=== PATIENT | male | born 1965 | race Caucasian/White ===

== ENCOUNTER 2016-05-21 12:38 | Emergency (ER) | payer OTHER ==
[~2016-05-21] VITALS: Ht 172.7 cm; Wt 103.4 kg
[~2016-05-21 12:38] MED LIST: AMT50 PO; CIPR-255 PO; CYCL10TA6 PO; IBUP-1050 PO; METR-163 PO; ONDA4TAB10 SL; TPRSR/25 PO; ZNTT/150 PO
[2016-05-21 12:43] VITALS: TEMP 36.8; Ht 172.7 cm; Wt 103.4 kg
[2016-05-21] MEDS ORDERED: PROMETHAZINE HCL INJ 25 MG/ML 1 ML VIAL IM STA (13:09)
[2016-05-21] MEDS ORDERED: KETOROLAC TROMETHAMINE 60 MG/2 ML VIAL IM STA (13:09)
[2016-05-21] MEDS ORDERED: HYDROmorphone INJ 2 MG/ML SYR/VIAL IM ONE (13:15)
[2016-05-21 14:09] VITALS: BP 148/106; PULSE 94; O2SAT 95
--- NOTE | 2016-05-22 23:48 | EMERGENCY ROOM VISIT NOTE ---
ED Visit Note First contact with patient: 13:00 CHIEF COMPLAINT: Migraine headache. HISTORY OF PRESENT ILLNESS: Mr. Zamudio is a 51 year-old white male who ambulates into the ED accompanied by his mother complaining of a migraine headache. She reports a gradual onset of a severe migraine headache that started approximately 18 hours ago. The pain is constant and it is slowly increasing in severity. This is not the worst headache of the life and is similar to previous migraines. Currently he describes the headache as a achy sensation/pain in the occipital area. She rates the pain a 10/10. The pain is radiating superiorly over the top of the head and then behind the eyes. He has not taken any medications for pain prior to arrival at the hospital. He has not identified any aggravating or alleviating factors related to the pain. There is been associated light sensitivity, nausea and vomiting. He denies fever, chills, sweats, skin eruptions, skin color changes, dizziness, lightheadedness, visual changes, hearing changes, difficulty speaking, difficulty swallowing, difficulty ambulates/coordinating body movements, recent upper respiratory tract symptoms, sore throat, sinus congestion, neck pain/stiffness, chest pain, shortness of breath, abdominal pain, extremity weakness/numbness/tingling. REVIEW OF SYSTEMS: As noted above in History of Present Illness; all body systems were reviewed and found to be negative unless noted above otherwise. PAST MEDICAL HISTORY: Diverticulitis, status post appendectomy, cervical spine fusion and unspecified throat and shoulder surgeries. CURRENT MEDICATIONS: Medications Dose Route/Sig Max Daily Dose Days Date Category Zofran Odt (Ondansetron HCl) 4 Mg Tab 4 Mg SL Q4 PRN 05/10/16 Rx Flagyl (Metronidazole) 500 Mg Tab 500 Mg PO BID 05/10/16 Rx Cipro (Ciprofloxacin Hcl) 500 Mg Tab 500 Mg PO BID 05/10/16 Rx Elavil (Amitriptyline HCl) 50 Mg Tab 50 Mg PO HS 04/10/16 Reported Flexeril (Cyclobenzaprine Hcl) 10 Mg Tab 10 Mg PO HS 04/10/16 Reported Advil (Ibuprofen) 200 Mg Tab 200-600 Mg PO Q4H PRN 03/23/16 Reported Metoprolol Succinate ER (Metoprolol Succinate) 25 Mg Tabcr 25 Mg PO DAILY 01/02/16 Reported Zantac (Ranitidine HCl) 150 Mg Tab 150 Mg PO DAILY PRN 10/01/15 Reported ALLERGIES TO MEDICATIONS: Citalopram, clonidine, Benadryl, Imitrex and zolmitriptan. SOCIAL HISTORY: Patient is currently employed; he lives with his mother and feels safe in his home environment; he denies tobacco and alcohol use. PHYSICAL EXAM: Vital Signs: Date Time Temp Pulse Resp B/P Pulse Ox O2 Delivery O2 Flow Rate FiO2 05/21/16 14:09 94 18 148/106 95 05/21/16 12:43 36.8 94 18 169/99 95 Room Air GENERAL: 51 year-old white male in moderate distress due to pain, afebrile and hemodynamically stable. Found sitting upright in a lighted room with sunglasses on. NEUROLOGIC: Awake, alert and oriented to person place and time. Answering questions appropriately and following commands. Cranial nerves II-XII grossly intact. No focal neurologic deficits noted. Good short-term and long-term recall. SKIN: Warm, dry and pink. No rashes, lesions or soft tissue trauma noted. HEENT: Normocephalic, atraumatic. Pupils equal, round and reactive. Extraocular movements intact and there is no nystagmus. Sclera anicteric. Ears , nose and oropharynx clear. Funduscopic examination deferred. NECK: Soft and supple. No tenderness through the central cervical region or cervical musculature. Negative Kernigs and negative Brudzinski signs. No lymphadenopathy, jugular venous distention, or bruits noted. THORAX: Lungs clear to auscultation and equal bilaterally with no wheezing, crackles, rhonchi or stridor and equal chest wall movements. HEART: Regular rate and rhythm with no murmurs, rubs or gallops. ABDOMEN: Soft and nontender with bowel sounds present in all quadrants; no rigidity, rebound tenderness, organomegaly or guarding. MUSCULOSKELETAL: Full range of motion of all joints without any significant discomfort and the gait is normal. ED COURSE: Patient is assessed with history and physical examination. Patient was given 2 mg of the Dilaudid IM, 60 mg of Toradol IM and 25 mg of Phenergan IM for the pain and nausea. Patient was reassessed. Patient was educated about his condition and instructed on her treatment plan; his verbalized understanding and agreement with this plan. CLINICAL IMPRESSION: Migraine headache. DECISION MAKIN-year-old male who presents for evaluation of headache. He is afebrile, well appearing, and hemodynamically stable. He has no signs of a sinus, dental, or ear infection and no evidence of meningismus. He is neurologically intact. I do not suspect a headache to be secondary to a subarachnoid hemorrhage, meningitis, encephalitis, or intracranial mass lesion. DISPOSITION: Patient was discharged to home in stable condition accompanied by his mother; prior to departure he was reassessed and subjectively reported he was feeling much better and rated his discomfort 4/10. DISCHARGE INSTRUCTIONS: Rest at home, in a quiet darkened room and allow the medication to work for the pain. Continue to follow up current treatment plan prescribed by your physician for your migraine headaches. See your own doctor in follow-up this week for continued care and treatment. Return to the ED as needed for worsening/uncontrolled pain, any abnormal neurological symptoms, fevers or in accordance with your pain management plan.
== END 2016-05-21 14:12 | disposition home or self-care (01) ==
LOC: C.EDB 12:40 → C.EDC 14:12
DX: G43.909 Migraine, unspecified, not intractable, without status migrainosus (principal)

== ENCOUNTER 2016-05-26 13:32 | Emergency (ER) | payer OTHER ==
[~2016-05-26] VITALS: Ht 172.7 cm; Wt 102.6 kg
[2016-05-26 13:36] VITALS: TEMP 36.7; Ht 172.7 cm; Wt 102.6 kg
--- NOTE | 2016-05-26 14:09 | EMERGENCY ROOM VISIT NOTE ---
History Report prepared by Santos: Eric Caballero Under the Supervision of: Dr. Bushra Bryant M.D. First contact with patient: 13:53 Chief Complaint: ABDOMINAL PAIN Stated Complaint: ABD PAIN - AROUND BELLY BUTTON Nursing Triage Summary: Abdominal pain in the umbilical region with nausea. History of Present Illness The patient is a 51 year old male who presents to the Emergency Room with complaints of persistent abdominal pain that started prior to arrival today. The patient was at work today and was bending over, and he then started having the pain. He states that the pain is around his belly button. The patient notes that the pain goes away when lying down, and the pain is much worse when standing up. He lifts heavy objects at his job, but he says that this pain has nothing to do with the lifting. Source of History: patient Onset: Prior to arrival today Position: abdomen Timing: other (persistent) Modifying Factors (Worsening): other (standing up) Modifying Factors (Relieving): other (lying down) Note: No other stated associated symptoms. Review of Systems See HPI for pertinent positives & negatives. A total of 6 systems reviewed and were otherwise negative. Past Medical & Surgical Medical Problems: (1) Diverticulitis (2) Diverticulitis (3) Diverticulosis (4) Headache (5) Hypertension (6) Migraine (7) Migraines (8) Pulmonary atelectasis (9) Vomiting Surgical Problems: (1) Appendectomy (2) Cervical fusion (3) Hx of resection of large bowel Family History FH: cancer FH: diabetes mellitus GRANDMOTHER FH: heart disease FATHER GRANDFATHER FH: stroke GRANDMOTHER Social History Smoking Status: Never Smoker Alcohol Use: none Drug Use: none Marital Status: single Housing Status: lives with family Occupation Status: employed Current/Historical Medications Scheduled Amitriptyline Hcl (Elavil), 50 MG PO HS Cyclobenzaprine Hcl (Flexeril), 10 MG PO HS Allergies Coded Allergies: Citalopram (Unverified Allergy, Unknown, unk, 05/26/16) Diphenhydramine (Verified Allergy, Unknown, crawls out of his skin, ) Sumatriptan (Verified Adverse Reaction, Intermediate, THROAT SWELLING, 05/26) Clonidine (Verified Adverse Reaction, Unknown, vomiting, headache, 05/26/16) Headache, chills, vomiting, PT DOES NOT RMEMEBER THIS ALLERGY Zolmitriptan (Verified Adverse Reaction, Unknown, LETHARGY, 05/26/16) Physical Exam Vital Signs Date Time Temp Pulse Resp B/P Pulse Ox O2 Delivery O2 Flow Rate FiO2 05/26/16 14:30 99 16 155/96 99 05/26/16 13:36 36.7 109 18 162/102 92 Room Air Physical Exam CONSTITUTIONAL: Mild distress. HEENT: No icterus, moist mucous membranes NECK: No meningismus, trachea is midline. CARDIOVASCULAR: Regular rate, normal perfusion RESPIRATORY: Unlabored breathing. Clear to auscultation. GASTROINTESTINAL: Reducible hernia. GENITOURINARY: No flank tenderness MUSCULOSKELETAL: Full range of motion NEUROLOGIC: No acute gross focal deficits. PSYCHIATRIC: Normal affect SKIN: Normal for ethnicity. Medical Decision & Procedures ED Course 1400: Past medical records reviewed. The patient was evaluated in room A11B. A complete history and physical examination was performed. The patient verbally expressed understanding and agreement of the treatment plan. The patient will be discharged. Medical Decision 51-year-old presents into the emergency room for painful palpable lump of umbilicus which occurred while he was work. He is noted to be under ED treatment plans for chronic recurrent headaches and occasional abdominal pain. He has an umbilical hernia which is clearly reproducible. Case management facilitate a follow-up with surgery on Sunday. If she has take Tylenol Motrin every 6 hours and return the emergency room should he not be able to reduce the hernia or for continues her despite [id number] analgesics. 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 Impression Primary Impression: Umbilical hernia Scribe Attestation The scribe's documentation has been prepared under my direction and personally reviewed by me in its entirety. I confirm that the note above accurately reflects all work, treatment, procedures, and medical decision making performed by me. Departure Information Dispostion Home / Self-Care Referrals Marlon Godfrey D.O. (PCP) Forms Call Back Authorization, HOME CARE DOCUMENTATION FORM, IMPORTANT VISIT INFORMATION, My [facility], Work Instructions Patient Instructions A Signature Page, Hernia Additional Instructions Take Tylenol 650 and Motrin 600mg every 6 hours. Follow-up with general surgery for umbilical hernia. Avoid heavy lifting at work. Return to ER for worsening or worrisome symptoms.
[2016-05-26 14:30] VITALS: BP 155/96; PULSE 99; O2SAT 99
== END 2016-05-26 14:30 | disposition home or self-care (01) ==
LOC: C.EDB 13:34 → C.EDA 14:30
DX: K42.9 Umbilical hernia without obstruction or gangrene (principal); I10 Essential (primary) hypertension; Z98.1 Arthrodesis status; Z83.3 Family history of diabetes mellitus; Z82.49 Family history of ischemic heart disease and other diseases of the circulatory system; Z82.3 Family history of stroke

== ENCOUNTER 2016-05-27 19:06 | Emergency (ER) | payer OTHER ==
[~2016-05-27] VITALS: Ht 172.7 cm; Wt 103.8 kg
[2016-05-27 19:11] VITALS: Ht 172.7 cm; Wt 103.8 kg
[2016-05-27] MEDS ORDERED: HYDROmorphone INJ 2 MG/ML SYR/VIAL IM STA (19:27)
[2016-05-27] MEDS ORDERED: PROMETHAZINE HCL INJ 25 MG/ML 1 ML VIAL IM STA (19:27)
[2016-05-27] MEDS ORDERED: KETOROLAC TROMETHAMINE 60 MG/2 ML VIAL IM STA (19:27)
--- NOTE | 2016-05-27 20:03 | EMERGENCY ROOM VISIT NOTE ---
ED Visit Note First contact with patient: 19:14 CHIEF COMPLAINT: Migraine headache HISTORY OF PRESENT ILLNESS: This 51-year-old male patient presented to the emergency department ambulatory with a gradual onset of a severe generalized headache that started this morning. The patient states the migraine is similar to their typical migraines. There has been associated photophobia, phonophobia, and nausea without vomiting. The patient denies fever or chills recently, and there is no weakness or numbness of the extremities. There is no difficulty with speech or vision. No trauma to the head and no neck pain. The pain is severe, constant, and it is slowly increasing in severity. The patient rates the pain as throbbing and and 9/10. The patient has taken Medications today for his symptoms. This is not the worst headache of the life and is similar to previous migraines. Previous imaging studies of the brain have been normal. REVIEW OF SYSTEMS: A review of systems was performed with positives and pertinent negatives listed in the history of present illness. All other systems were reviewed and are negative. ALLERGIES: Citalopram, clonidine, diphenhydramine, sumatriptan, zolmitriptan MEDICATIONS: Amitriptyline, Flexeril PMH: Migraine headaches SOCIAL HISTORY: Patient lives locally with family. Nonsmoker. PHYSICAL EXAM: Vital Signs: Reviewed Nurse's notes, vital signs stable. GENERAL : This is a 51-year-old male, who appears in pain, but non toxic in appearance and in no acute distress. MENTAL STATUS: Alert, oriented, and coherent. HEENT: Normocephalic. PERRLA. EOMI. Nares patent without nuchal rigidity. Tympanic membranes pearly tran without erythema or effusion bilaterally. Mucous membranes moist. NECK: Supple, no nuchal rigidity, nontender, no lymphadenopathy. HEART: Regular rhythm and normal rate without murmurs, ectopy, gallops, or rubs. LUNGS: Clear to auscultation bilaterally without wheezes, rales or rhonchi. No dullness to percussion. No accessory muscle use. No retractions. SKIN: Normal. NEUROLOGICAL: Pupils are round, equal and react to light. The optic fundi are normal and the discs are flat. The patient moves all extremities well and the gait is normal. EMERGENCY DEPARTMENT COURSE: I examined the patient. The patient is on a 2 narcotic injection per month treatment plan for their migraines. The patient was given 2 mg Dilaudid IM, 60 mg Toradol IM and 25 mg Phenergan IM per their usual protocol. The differential diagnosis includes acute intracranial bleed, meningitis, encephalitis, mass or mass effect, sinusitis, infection, tumor, headache, temporal arteritis and carbon monoxide exposure, and migraine. The patient was discharged home in stable condition with a family member driving. DIAGNOSIS: Migraine headache Problem List Medical Problems: (1) Diverticulitis Status: Resolved (2) Diverticulitis Status: Resolved (3) Diverticulosis Status: Chronic (4) Headache Status: Resolved (5) Hypertension Status: Chronic (6) Migraine Status: Resolved (7) Migraines Status: Chronic (8) Pulmonary atelectasis Status: Resolved (9) Vomiting Status: Resolved Surgical Problems: (1) Appendectomy Status: Resolved (2) Cervical fusion Status: Resolved (3) Hx of resection of large bowel Status: Resolved Current/Historical Medications Scheduled Amitriptyline Hcl (Elavil), 50 MG PO HS Cyclobenzaprine Hcl (Flexeril), 10 MG PO HS Metoprolol Succinate (Metoprolol Succinate ER), 25 MG PO DAILY Allergies Coded Allergies: Citalopram (Unverified Allergy, Unknown, unk, 05/27/16) Diphenhydramine (Verified Allergy, Unknown, crawls out of his skin, 05/27/16 ) Sumatriptan (Verified Adverse Reaction, Intermediate, THROAT SWELLING, 05/27) Clonidine (Verified Adverse Reaction, Unknown, vomiting, headache, 05/27/16) Headache, chills, vomiting, PT DOES NOT RMEMEBER THIS ALLERGY Zolmitriptan (Verified Adverse Reaction, Unknown, LETHARGY, 05/27/16) Vital Signs Date Time Temp Pulse Resp B/P Pulse Ox O2 Delivery O2 Flow Rate FiO2 05/27/16 20:33 36.8 101 18 163/97 94 05/27/16 19:11 36.8 101 18 163/97 94 Room Air Medications Administered Medications (Trade) Dose Ordered Sig/Gladis Route Start Time Stop Time Status Last Admin Dose Admin Hydromorphone HCl (Dilaudid Inj) 2 mg NOW STAT IM 05/27/16 19:27 05/27/16 19:29 DC 05/27/16 20:13 2 MG Promethazine HCl (Phenergan Inj) 25 mg NOW STAT IM 05/27/16 19:27 05/27/16 19:29 DC 05/27/16 20:12 25 MG Ketorolac Tromethamine (Toradol Inj) 60 mg NOW STAT IM 05/27/16 19:27 05/27/16 19:29 DC 05/27/16 20:12 60 MG Departure Information Impression Primary Impression: Migraine Dispostion Home / Self-Care Condition GOOD Referrals Marlon Godfrey, D.O. (PCP) Patient Instructions A Signature Page, My [facility] Additional Instructions You have been treated in the Emergency Department for a Headache. You have received pain medicine in the emergency department which impairs your ability to operate a vehicle. It is illegal for you to drive after receiving these medicines. Follow-up with your primary care provider Holger frances as scheduled. Return to the Emergency Department if your current symptoms worsen despite treatment course outlined above, or if you develop any of the following symptoms : intractable pain despite aforementioned treatment course, visual disturbances , loss of vision, unilateral weakness or facial drooping, slurring of speech, loss of coordination, or loss of consciousness.
[2016-05-27 20:33] VITALS: BP 163/97; PULSE 101; TEMP 36.8; O2SAT 94
== END 2016-05-27 20:34 | disposition home or self-care (01) ==
LOC: C.EDB 19:07 → C.EDD 20:34
DX: G43.909 Migraine, unspecified, not intractable, without status migrainosus (principal); I10 Essential (primary) hypertension; Z79.1 Long term (current) use of non-steroidal anti-inflammatories (NSAID); Z79.899 Other long term (current) drug therapy

== ENCOUNTER 2016-06-21 15:22 | Emergency (ER) | payer OTHER ==
[~2016-06-21] VITALS: Ht 172.7 cm; Wt 102.0 kg
[~2016-06-21 15:22] MED LIST changes: -CIPR-255 PO; -IBUP-1050 PO; -METR-163 PO; -ONDA4TAB10 SL; -TPRSR/25 PO; -ZNTT/150 PO
[2016-06-21 15:36] VITALS: TEMP 36.9; Ht 172.7 cm; Wt 102.0 kg
[2016-06-21] MEDS ORDERED: KETOROLAC TROMETHAMINE 60 MG/2 ML VIAL IM STA (15:41)
[2016-06-21] MEDS ORDERED: PROMETHAZINE HCL INJ 25 MG/ML 1 ML VIAL IM STA (15:41)
[2016-06-21] MEDS ORDERED: HYDROmorphone INJ 2 MG/ML SYR/VIAL IM STA (15:41)
--- NOTE | 2016-06-21 15:46 | EMERGENCY ROOM VISIT NOTE ---
History First contact with patient: 15:37 Chief Complaint: HEADACHE Stated Complaint: MIGRAINE History of Present Illness The patient is a 51 year old male who presents to the Emergency Room with complaints of his typical migraine headache that started this morning. He reports nausea without vomiting. He has had no recent head injury, fevers or chills. He does have a recent history of umbilical herniorrhaphy. He denies any abdominal pain or drainage from the umbilicus. He reports that this migraine is similar to all prior migraines, and also worse headache of his life. He rates his discomfort a 9 out of 10. Review of Systems 10 system review was performed and was negative except for pertinent positives and negatives as indicated in history of present illness Past Medical/Surgical History Medical Problems: (1) Diverticulitis (2) Diverticulitis (3) Diverticulosis (4) Headache (5) Hypertension (6) Migraine (7) Migraines (8) Pulmonary atelectasis (9) Vomiting Surgical Problems: (1) Appendectomy (2) Cervical fusion (3) Hx of resection of large bowel Family History FH: cancer FH: diabetes mellitus GRANDMOTHER FH: heart disease FATHER GRANDFATHER FH: stroke GRANDMOTHER Social History Smoking Status: Never Smoker Alcohol Use: none Drug Use: none Marital Status: single Housing Status: lives with family Occupation Status: employed Current/Historical Medications Scheduled Amitriptyline Hcl (Elavil), 50 MG PO HS Cyclobenzaprine Hcl (Flexeril), 10 MG PO HS Metoprolol Succinate (Metoprolol Succinate ER), 25 MG PO DAILY Allergies Coded Allergies: Citalopram (Unverified Allergy, Unknown, unk, 05/27/16) Diphenhydramine (Verified Allergy, Unknown, crawls out of his skin, 05/27/16 ) Sumatriptan (Verified Adverse Reaction, Intermediate, THROAT SWELLING, 05/27) Clonidine (Verified Adverse Reaction, Unknown, vomiting, headache, 05/27/16) Headache, chills, vomiting, PT DOES NOT RMEMEBER THIS ALLERGY Zolmitriptan (Verified Adverse Reaction, Unknown, LETHARGY, 05/27/16) Physical Exam Vital Signs Date Time Temp Pulse Resp B/P Pulse Ox O2 Delivery O2 Flow Rate FiO2 06/21/16 15:36 36.9 107 21 168/112 95 Room Air Physical Exam CONSTITUTIONAL: Healthy and well nourished. Alert and oriented X 3 with positive affect. HEENT: Normocephalic, atraumatic. Pupils equal, round and reactive. Patient is photophobic, precluding funduscopic exam. NECK: Full active range of motion without discomfort. RESPIRATORY: Clear to auscultation bilaterally with no wheezing, crackles, rhonchi or stridor. CARDIOVASCULAR: Regular rate and rhythm with no murmurs, rubs or gallops. INTEGUMENTARY: No rash or other significant dermatologic conditions noted. NEUROLOGIC: Cranial nerves II-XII grossly intact. No focal neurologic deficits noted. Normal finger to nose test. Negative pronator drift. No ataxia with ambulation. Medical Decision & Procedures ED Course Patient history and physical exam were performed. Nurse's notes were reviewed. Vital signs were reviewed. Patient's blood pressure is elevated at 168/112. The patient reports that he did not take his Toprol this morning because of the nausea. Review medical records also shows that the patient is currently on a treatment plan. This is his first visit of the month, and received Dilaudid 2 mg, Toradol 60 mg and Phenergan 25 mg IM. The patient requested immediate discharge home. The patient was instructed to rest and remain well-hydrated. Follow-up with his family doctor or neurologist as needed for recurrent migraine headache. Return to the emergency department for any developing fever , persistent vomiting or other concerning neurologic symptoms. The patient was happy with plan of care, and rated his discomfort a 6 out of 10 at the time of discharge. Medical Decision Patient presents to the emergency department with complaint of a migraine. The patient has a history of chronic migraines, and reports that this pain is similar to all prior migrainous events. It is not the worse headache of his life. At this point, I do not feel that further imaging or laboratory studies are warranted. I do not suspect intracranial bleed, meningitis, abscess, TIA/ CVA, thromboembolic event or carbon monoxide poisoning. Impression Primary Impression: Migraine Departure Information Referrals Marlon Godfrey D.O. (PCP) Patient Instructions My [facility] Problem Qualifiers Primary Impression: Migraine Migraine type: unspecified Status migrainosus presence: without status migrainosus Intractability: not intractable Qualified Codes: G43.909 - Migraine, unspecified, not intractable, without status migrainosus
[2016-06-21 16:13] VITALS: BP 175/115; PULSE 103; O2SAT 94
== END 2016-06-21 16:14 | disposition home or self-care (01) ==
LOC: C.EDB 15:23 → C.EDD 16:14
DX: G43.909 Migraine, unspecified, not intractable, without status migrainosus (principal); I10 Essential (primary) hypertension

== ENCOUNTER 2016-06-23 17:44 | Emergency (ER) | payer OTHER ==
[~2016-06-23] VITALS: Ht 172.7 cm; Wt 103.5 kg
[2016-06-23 17:49] VITALS: BP 195/115; PULSE 97; TEMP 36.8; O2SAT 96; Ht 172.7 cm; Wt 103.5 kg
[2016-06-23] MEDS ORDERED: KETOROLAC TROMETHAMINE 60 MG/2 ML VIAL IM STA (18:30)
[2016-06-23] MEDS ORDERED: PROMETHAZINE HCL INJ 25 MG/ML 1 ML VIAL IM STA (18:30)
[2016-06-23] MEDS ORDERED: HYDROmorphone INJ 2 MG/ML SYR/VIAL IM STA (18:30)
[2016-06-23] MEDS ORDERED: TPRSR/25 PO (19:34)
--- NOTE | 2016-06-24 02:25 | EMERGENCY ROOM VISIT NOTE ---
ED Visit Note First contact with patient: 17:55 CHIEF COMPLAINT: Migraine headache. HISTORY OF PRESENT ILLNESS: Mr. Zamudio is a 51 year-old white male who ambulates into the ED accompanied by his complaining of a migraine headache. He reports a gradual onset of a severe migraine headache that started approximately 48 hours ago. The pain is constant and it is slowly increasing in severity. This is not the worst headache of the life and is similar to previous migraines. Currently he describes the headache as a achy/throbbing sensation/pain in the occipital area. He rates the pain a 9/10. The pain is radiating superiorly over the top of the head and then behind the eyes. He has not taken any medications for pain prior to arrival at the hospital. He has not identified any aggravating or alleviating factors related to the pain. There is been associated light sensitivity, nausea but no vomiting. He denies fever, chills, sweats, skin eruptions, skin color changes, dizziness, lightheadedness, visual changes, hearing changes, difficulty speaking, difficulty swallowing, difficulty ambulates/coordinating body movements, recent upper respiratory tract symptoms, sore throat, sinus congestion, neck pain/stiffness, chest pain, shortness of breath, abdominal pain, extremity weakness/numbness/tingling. REVIEW OF SYSTEMS: As noted above in History of Present Illness; all body systems were reviewed and found to be negative unless noted above otherwise. PAST MEDICAL HISTORY: Diverticulitis, status post umbilical hernia repair, appendectomy, cervical spine fusion and unspecified throat and shoulder surgeries. CURRENT MEDICATIONS: Medications Dose Route/Sig Max Daily Dose Days Date Category Metoprolol Succinate ER (Metoprolol Succinate) 25 Mg Tabcr 25 Mg PO DAILY 05/27/16 Reported ALLERGIES TO MEDICATIONS: Citalopram, clonidine, Benadryl, Imitrex and zolmitriptan. SOCIAL HISTORY: Patient is currently employed; he lives with his mother and feels safe in his home environment; he denies tobacco and alcohol use. PHYSICAL EXAM: Vital Signs: Date Time Temp Pulse Resp B/P Pulse Ox O2 Delivery O2 Flow Rate FiO2 06/23/16 17:49 36.8 97 20 195/115 96 Room Air GENERAL: 51 year-old white male in moderate distress due to pain, afebrile and hemodynamically stable. Found sitting upright in a darkened room with baseball down over his face. NEUROLOGIC: Awake, alert and oriented to person place and time. Answering questions appropriately and following commands. Cranial nerves II-XII grossly intact. No focal neurologic deficits noted. Good short-term and long-term recall. SKIN: Warm, dry and pink. No rashes, lesions or soft tissue trauma noted. HEENT: Normocephalic, atraumatic. Pupils equal, round and reactive. Extraocular movements intact and there is no nystagmus. Sclera anicteric. Ears , nose and oropharynx clear. Funduscopic examination deferred. NECK: Soft and supple. No tenderness through the central cervical region or cervical musculature. Negative Kernigs and negative Brudzinski signs. No lymphadenopathy, jugular venous distention, or bruits noted. THORAX: Lungs clear to auscultation and equal bilaterally with no wheezing, crackles, rhonchi or stridor and equal chest wall movements. HEART: Regular rate and rhythm with no murmurs, rubs or gallops. ABDOMEN: Soft and nontender with bowel sounds present in all quadrants; no rigidity, rebound tenderness, organomegaly or guarding. MUSCULOSKELETAL: Full range of motion of all joints without any significant discomfort and the gait is normal. ED COURSE: Patient is assessed with history and physical examination. Patient was given 2 mg of the Dilaudid IM, 60 mg of Toradol IM and 25 mg of Phenergan IM for the pain and nausea. Patient was reassessed. Patient was educated about his condition and instructed on her treatment plan; his verbalized understanding and agreement with this plan. CLINICAL IMPRESSION: Migraine headache. DECISION MAKIN-year-old male who presents for evaluation of headache. He is afebrile, well appearing, and hemodynamically stable. He has no signs of a sinus, dental, or ear infection and no evidence of meningismus. He is neurologically intact. I do not suspect a headache to be secondary to a subarachnoid hemorrhage, meningitis, encephalitis, or intracranial mass lesion. DISPOSITION: Patient was discharged to home in stable condition accompanied by his ; prior to departure he was reassessed and subjectively reported he was feeling much better and rated his discomfort 9/10. DISCHARGE INSTRUCTIONS: Rest at home, in a quiet darkened room and allow the medication to work for the pain. Continue to follow up current treatment plan prescribed by your physician for your migraine headaches. See your own doctor in follow-up this week for continued care and treatment. Return to the ED as needed for worsening/uncontrolled pain, any abnormal neurological symptoms, fevers or in accordance with your pain management plan.
== END 2016-06-23 18:56 | disposition home or self-care (01) ==
LOC: C.EDB 17:44 → C.EDD 18:56
DX: G43.909 Migraine, unspecified, not intractable, without status migrainosus (principal)

== ENCOUNTER 2016-07-02 10:19 | Emergency (ER) | payer OTHER ==
[~2016-07-02] VITALS: Ht 172.7 cm; Wt 104.7 kg
[~2016-07-02 10:19] MED LIST changes: -AMT50 PO; -CYCL10TA6 PO; +TPRSR/25 PO
[2016-07-02 10:23] VITALS: TEMP 36.8; Ht 172.7 cm; Wt 104.7 kg
[2016-07-02] MEDS ORDERED: KETOROLAC TROMETHAMINE 30 MG/ML VIAL IV STA (10:48)
[2016-07-02] MEDS ORDERED: SODIUM CHLORIDE 0.9% 1000ML 1,000 ML IV STA (10:48)
[2016-07-02] MEDS ORDERED: PROMETHAZINE HCL INJ 25 MG in SODIUM CHLORIDE 0.9% 50ML 50 ML IV STA (10:48)
[2016-07-02] MEDS ORDERED: DEXAMETHASONE SOD INJ 10 MG/ML VIAL IV ONE (11:00)
--- NOTE | 2016-07-02 11:25 | EMERGENCY ROOM VISIT NOTE ---
History First contact with patient: 10:36 Chief Complaint: HEADACHE Stated Complaint: MIGRAINE History of Present Illness The patient is a 51 year old male who presents to the Emergency Room with complaints of migraine headache which started yesterday. The patient states it is on the left side of his head and behind his left eye. The patient denies any visual changes except for light sensitivity. The patient denies any dizziness. The patient does admit to nausea but denies any vomiting. The patient has not taken anything for the headache. The patient states the symptoms are typical for his migraines. This is not the worse headache of his life. Review of Systems 10 system review was performed and was negative unless stated otherwise history of present illness. Past Medical/Surgical History Medical Problems: (1) Diverticulitis (2) Diverticulitis (3) Diverticulosis (4) Headache (5) Hypertension (6) Migraine (7) Migraines (8) Pulmonary atelectasis (9) Vomiting Surgical Problems: (1) Appendectomy (2) Cervical fusion (3) Hx of resection of large bowel Family History FH: cancer FH: diabetes mellitus GRANDMOTHER FH: heart disease FATHER GRANDFATHER FH: stroke GRANDMOTHER Social History Smoking Status: Never Smoker Alcohol Use: none Drug Use: none Marital Status: single Housing Status: lives with family Occupation Status: employed Current/Historical Medications Scheduled Metoprolol Succinate (Metoprolol Succinate ER), 25 MG PO DAILY Allergies Coded Allergies: Citalopram (Verified Allergy, Unknown, unk, 07/02/16) Diphenhydramine (Verified Allergy, Unknown, crawls out of his skin, 06/23/16 ) Sumatriptan (Verified Adverse Reaction, Intermediate, THROAT SWELLING, 06/23) Clonidine (Verified Adverse Reaction, Unknown, vomiting, headache, 06/23/16) Headache, chills, vomiting, PT DOES NOT RMEMEBER THIS ALLERGY Zolmitriptan (Verified Adverse Reaction, Unknown, LETHARGY, 06/23/16) Physical Exam Vital Signs Date Time Temp Pulse Resp B/P Pulse Ox O2 Delivery O2 Flow Rate FiO2 07/02/16 10:23 36.8 96 18 149/99 100 Room Air Physical Exam GENERAL: 51-year-old white male appears lying in a darkened room in no acute distress. MENTAL STATUS: Patient is alert and oriented x3 HEAD: Atraumatic EYES: PERRLA. EOMs intact. EARS: Canals clear. TMs without fluid level noted. NECK: Supple, no lymphadenopathy noted. No carotid bruits noted. LUNGS: Clear auscultation without wheezes rales or rhonchi. CARDIAC: Regular rate and rhythm without murmur. Pulses is full and equal throughout. NEURO:Cranial nerves two through 12 intact. Cerebellar function intact with [id number]. Fine motor intact with alternating finger motions. Medical Decision & Procedures Medications Administered Medications (Trade) Dose Ordered Sig/Gladis Route Start Time Stop Time Status Last Admin Dose Admin Sodium Chloride (Nss 1000ml) 1,000 ml @ 999 mls/hr Q1H1M STAT IV 07/02/16 10:48 07/02/16 11:48 07/02/16 11:04 999 MLS/HR Dexamethasone Sodium Phosphate (Decadron Inj) 10 mg NOW ONCE IV 07/02/16 11:00 07/02/16 11:01 DC 07/02/16 11:05 10 MG Ketorolac Tromethamine 30 mg 30 mg NOW STAT IV 07/02/16 10:48 07/02/16 10:50 DC 07/02/16 11:05 30 MG Promethazine HCl/ Sodium Chloride (Phenergan Inj/ Nss 50ml) 51 ml @ 204 mls/hr NOW STAT IV 07/02/16 10:48 07/02/16 11:02 DC 07/02/16 11:04 204 MLS/HR ED Course The patient was evaluated. The patient is on a 2 injection per month treatment plan for his migraine headaches. He has already received his 2 narcotic injections for the month of June. The patient was informed that he would not be getting narcotics today. He verbalized understanding. IV access was obtained. The patient was given 1 L normal saline. He was given Toradol 30 mg IV, Decadron 10 mg IV and Phenergan 25 mg IV. The patient was reevaluated and stated that he was feeling slightly better, that it took the edge off the pain. He was discharged home in stable condition with a family member driving. Medical Decision Differential includes: Acute intracranial bleed, trauma, meningitis, encephalitis, increased intracranial pressure, mass or mass effect, facial or dental infection, temporal arteritis, CVA, TIA, acute hypertensive emergency, sinusitis, carbon monoxide exposure. The patient presented with his typical migraine headache symptoms therefore no additional diagnostic imaging was provided. The patient already had received his 2 narcotic injections for the month of June therefore he was given alternate medications for his headache. Impression Primary Impression: Migraine Departure Information Dispostion Home / Self-Care Condition GOOD Referrals Marlon Godfrey, D.O. (PCP) Forms HOME CARE DOCUMENTATION FORM, IMPORTANT VISIT INFORMATION Patient Instructions ED Headache Migraine, My [facility] [employer] [facility] Additional Instructions Go home and rest for the remainder of the day. [id number] treatment as needed for headache. Follow up with your family doctor for possible prophylactic medications for your migraines for referral to neurology.
[2016-07-02 11:40] VITALS: BP 147/103; PULSE 79; O2SAT 95
== END 2016-07-02 11:30 | disposition home or self-care (01) ==
LOC: C.EDB 10:20 → C.EDC 11:30
DX: G43.909 Migraine, unspecified, not intractable, without status migrainosus (principal); I10 Essential (primary) hypertension

== ENCOUNTER 2016-07-07 19:59 | Emergency (ER) | payer OTHER ==
[~2016-07-07] VITALS: Ht 172.7 cm; Wt 104.5 kg
[2016-07-07 20:00] VITALS: Ht 172.7 cm; Wt 104.5 kg
--- NOTE | 2016-07-07 20:35 | EMERGENCY ROOM VISIT NOTE ---
History Report prepared by Santos: Patrica Dailey Under the Supervision of: Dr. Bushra Bryant M.D. First contact with patient: 20:22 Chief Complaint: HEADACHE Stated Complaint: MIGRAINE History of Present Illness The patient is a 51 year old male who presents to the Emergency Room with complaints of a persistent headache since 0530 this morning. He rates his pain as a 10/10 in severity and reports the pain is "constant", and located in the temporal area of his head. He also vomited prior to arrival at the ED this evening. The patient admits to a history of migraine headaches for the past 9 years, but states "this is worse". He reports he has not taken any medication for his discomfort yet, stating "Tylenol doesn't touch it". The patient has followed with Dr. Sanderson of [facility] in the past, and states he was referred to pain management by his primary care physician, but has not been able to find any relief. He reports Dr. Bryant of Pain Management has done "nerve blocks" in the past and has also "burnt nerves", noting he has numbness in one side of his head but still experiences migraine headaches. He also visits the [place] ED approximately "once a month" for pain medication when he gets headaches, and states he comes here to [facility] "one to two times a month". Source of History: patient Onset: 0530 this morning Position: head Symptom Intensity: 10/10 Timing: constant Associated Symptoms: + nausea, + vomiting Review of Systems See HPI for pertinent positives & negatives. A total of 10 systems reviewed and were otherwise negative. Past Medical & Surgical Medical Problems: (1) Diverticulitis (2) Diverticulitis (3) Diverticulosis (4) Headache (5) Hypertension (6) Migraine (7) Migraines (8) Pulmonary atelectasis (9) Vomiting Surgical Problems: (1) Appendectomy (2) Cervical fusion (3) Hx of resection of large bowel Family History FH: cancer FH: diabetes mellitus GRANDMOTHER FH: heart disease FATHER GRANDFATHER FH: stroke GRANDMOTHER Social History Smoking Status: Never Smoker Alcohol Use: none Drug Use: none Marital Status: single Housing Status: lives with family Occupation Status: employed Current/Historical Medications Scheduled Metoprolol Succinate (Metoprolol Succinate ER), 25 MG PO DAILY Allergies Coded Allergies: Citalopram (Verified Allergy, Unknown, unk, 07/07/16) Diphenhydramine (Verified Allergy, Unknown, crawls out of his skin, ) Sumatriptan (Verified Adverse Reaction, Intermediate, THROAT SWELLING, ) Clonidine (Verified Adverse Reaction, Unknown, vomiting, headache, 07/07/16 ) Headache, chills, vomiting, PT DOES NOT RMEMEBER THIS ALLERGY Zolmitriptan (Verified Adverse Reaction, Unknown, LETHARGY, 07/07/16) Physical Exam Vital Signs Date Time Temp Pulse Resp B/P Pulse Ox O2 Delivery O2 Flow Rate FiO2 07/07/16 20:00 36.4 94 16 166/106 94 Room Air Physical Exam CONSTITUTIONAL: The patient appears to be in mild distress. HEENT: No icterus, moist mucous membranes NECK: No meningismus, trachea is midline. CARDIOVASCULAR: Regular rate, normal perfusion RESPIRATORY: Unlabored breathing. Clear to auscultation. GASTROINTESTINAL: Non-tender GENITOURINARY: No flank tenderness MUSCULOSKELETAL: Full range of motion NEUROLOGIC: No acute gross focal deficits. PSYCHIATRIC: Normal affect SKIN: Normal for ethnicity. Medical Decision & Procedures ED Course 2026: Past medical records reviewed. The patient was evaluated in room A4B. A complete history and physical examination was performed. 2037: Phenergan 25 mg IM, Dilaudid 2 mg IV, Toradol 30 mg IM. 2049: I reevaluated the patient. He is feeling much better. I discussed his discharge instructions and he verbalized complete understanding and agreement. Medical Decision 51 y/o presented to the ED for analgesic control per the ED Treatment Plan which is kept on file in the department. Per this treatment plan patient is to receive "2 shots/month..of Dilaudid 2mg IM, Toradol 60mg IM and Phenergan 25mg IM. Patient reports perhaps 9 or more years of chronic recurrent headaches [facility] and pain management consultations who reportedly administered cervical injections and performed other procedures. Patient states he has insurance and was referred to pain management years ago but they have not helped him. He states he comes here 2x/month as well as [facility] 1x/month for his pain. He states he has not seen a primary care provider, neurologist or pain specialist for his pain in "years." He states he has not been offered direction or assistance in this regard from our department. ROS negative for subjective focal neurologic complaints. Normal neuro exam. Patient appears in mild distress. When asked as to the details of his headache he cogently states it's left sided behind his eye and "intense" and provides nor further details. Patient is cooperative and reasonable and cites frustration with the chronic recurrent nature of his headaches. I offered assistance with more targeted outpatient follow-up and patient was agreeable to assistance by case management into an appropriate care setting for his chronic pain. Case management aware of history and need for outpatient follow-up. Impression Primary Impression: Chronic headache Scribe Attestation The scribe's documentation has been prepared under my direction and personally reviewed by me in its entirety. I confirm that the note above accurately reflects all work, treatment, procedures, and medical decision making performed by me. Departure Information Dispostion Home / Self-Care Referrals Marlon Godfrey, D.O. (PCP) Patient Instructions Chronic Pain, My [facility]
[2016-07-07] MEDS ORDERED: PROMETHAZINE HCL INJ 25 MG/ML 1 ML VIAL IM STA (20:38)
[2016-07-07] MEDS ORDERED: HYDROmorphone INJ 2 MG/ML SYR/VIAL IV STA (20:38)
[2016-07-07] MEDS ORDERED: KETOROLAC TROMETHAMINE 30 MG/ML VIAL IM STA (20:38)
[2016-07-07 21:03] VITALS: BP 145/98; PULSE 94; TEMP 36.4; O2SAT 94
== END 2016-07-07 21:04 | disposition home or self-care (01) ==
LOC: C.EDB 20:00 → C.EDA 21:04
DX: R51 Headache (principal); I10 Essential (primary) hypertension; Z98.1 Arthrodesis status; Z90.49 Acquired absence of other specified parts of digestive tract; Z83.3 Family history of diabetes mellitus; Z82.3 Family history of stroke; Z79.899 Other long term (current) drug therapy

== ENCOUNTER 2016-07-21 19:23 | Emergency (ER) | payer OTHER ==
[~2016-07-21] VITALS: Ht 172.7 cm; Wt 103.9 kg
[2016-07-21 19:27] VITALS: TEMP 36.5; Ht 172.7 cm; Wt 103.9 kg
[2016-07-21] MEDS ORDERED: KETOROLAC TROMETHAMINE 60 MG/2 ML VIAL IM STA (19:37)
[2016-07-21] MEDS ORDERED: PROMETHAZINE HCL INJ 25 MG/ML 1 ML VIAL IM STA (19:37)
[2016-07-21] MEDS ORDERED: HYDROmorphone INJ 2 MG/ML SYR/VIAL IM STA (19:37)
--- NOTE | 2016-07-21 19:41 | EMERGENCY ROOM VISIT NOTE ---
ED Visit Note First contact with patient: 19:31 CHIEF COMPLAINT: Migraine headache HISTORY OF PRESENT ILLNESS: This 51-year-old male patient presented to the emergency department with a gradual onset of a severe generalized headache that started this afternoon. There has been associated photophobia, phonophobia, nausea and vomiting. The patient denies fever or chills recently, and there is no weakness or numbness of the extremities. There is no difficulty with speech or vision. No trauma to the head and no neck pain. The pain is severe, constant , and it is slowly increasing in severity. The patient rates the pain as sharp and 9/10. The patient has taken his usual medications. This is not the worst headache of the life and is similar to previous migraines. Previous imaging studies of the brain (CT scans) have been normal. The patient states he has an appointment on Sunday with pain management and also an appointment with neurology next week. REVIEW OF SYSTEMS: An 8 system review of systems was completed with positives and pertinent negatives listed in the HPI. ALLERGIES: Citalopram, clonidine, diphenhydramine, sumatriptan MEDICATIONS: Unchanged from previous PMH: Migraines SOCIAL HISTORY: The patient does not smoke. He lives locally PHYSICAL EXAM: Vital Signs: Reviewed Nurse's notes, vital signs stable. MENTAL STATUS: Alert, oriented, and coherent. In great distress from the headache. NECK : Supple, no nuchal rigidity, nontender, no lymphadenopathy. HEART: Regular rhythm and normal rate without murmurs, ectopy, gallops, or rubs. SKIN: Normal. NEUROLOGICAL: Pupils are round, equal and react to light. The optic fundi are normal and the discs are flat. EOMs are full and there is no nystagmus. The patient moves all extremities well and the gait is normal. EMERGENCY DEPARTMENT COURSE: I examined the patient. The patient is well-known to the emergency department. He is on a 2 shot per month treatment protocol. The patient was given 2 mg IM Dilaudid, 60 mg IM Toradol and 25 mg IM Phenergan with relief of their pain. The differential diagnosis includes acute intracranial bleed, meningitis, encephalitis, mass or mass effect, sinusitis, infection, tumor, headache, temporal arteritis and carbon monoxide exposure, and migraine. The patient was discharged home in stable condition with a family member driving. DIAGNOSIS: Migraine headache DISCHARGE INSTRUCTIONS & TREATMENT: Rest at home, resume prescription medications. See your own doctor in follow-up. Problem List Medical Problems: (1) Diverticulitis Status: Resolved (2) Diverticulitis Status: Resolved (3) Diverticulosis Status: Chronic (4) Headache Status: Resolved (5) Hypertension Status: Chronic (6) Migraine Status: Resolved (7) Migraines Status: Chronic (8) Pulmonary atelectasis Status: Resolved (9) Vomiting Status: Resolved Surgical Problems: (1) Appendectomy Status: Resolved (2) Cervical fusion Status: Resolved (3) Hx of resection of large bowel Status: Resolved Current/Historical Medications Unable to Obtain Active Prescriptions or Reported Meds Allergies Coded Allergies: Citalopram (Verified Allergy, Unknown, unk, 07/21/16) Diphenhydramine (Verified Allergy, Unknown, crawls out of his skin, ) Sumatriptan (Verified Adverse Reaction, Intermediate, THROAT SWELLING, 07/21) Clonidine (Verified Adverse Reaction, Unknown, vomiting, headache, 07/21/16) Headache, chills, vomiting, PT DOES NOT RMEMEBER THIS ALLERGY Zolmitriptan (Verified Adverse Reaction, Unknown, LETHARGY, 07/21/16) Vital Signs Date Time Temp Pulse Resp B/P Pulse Ox O2 Delivery O2 Flow Rate FiO2 07/21/16 19:27 36.5 94 18 147/103 97 Room Air Medications Administered Medications (Trade) Dose Ordered Sig/Gladis Route Start Time Stop Time Status Last Admin Dose Admin Hydromorphone HCl (Dilaudid Inj) 2 mg ONE STAT IM 07/21/16 19:37 07/21/16 19:39 DC 07/21/16 19:37 2 MG Ketorolac Tromethamine (Toradol Inj) 60 mg NOW STAT IM 07/21/16 19:37 07/21/16 19:39 DC 07/21/16 19:37 60 MG Promethazine HCl (Phenergan Inj) 25 mg NOW STAT IM 07/21/16 19:37 07/21/16 19:39 DC 07/21/16 19:37 25 MG Departure Information Impression Primary Impression: Migraine Dispostion Home / Self-Care Condition GOOD Prescriptions Unable to Obtain Active Prescriptions or Reported Meds Referrals Marlon Godfrey, D.O. (PCP) Patient Instructions ED Headache Migraine, [facility] Additional Instructions Rest at home, resume prescription medications. See your own doctor in follow-up.
[2016-07-21 20:36] VITALS: BP 147/90; PULSE 90; O2SAT 97
== END 2016-07-21 20:36 | disposition home or self-care (01) ==
LOC: C.EDB 19:24
DX: G43.909 Migraine, unspecified, not intractable, without status migrainosus (principal)

== ENCOUNTER 2016-07-28 15:17 | Emergency (ER) | payer OTHER ==
[~2016-07-28] VITALS: Ht 172.7 cm; Wt 103.9 kg
[2016-07-28 15:21] VITALS: TEMP 37.1; Ht 172.7 cm; Wt 103.9 kg
[2016-07-28] MEDS ORDERED: PROMETHAZINE HCL INJ 25 MG/ML 1 ML VIAL IM STA (15:37)
[2016-07-28] MEDS ORDERED: KETOROLAC TROMETHAMINE 60 MG/2 ML VIAL IM STA (15:37)
[2016-07-28] MEDS ORDERED: HYDROmorphone INJ 2 MG/ML SYR/VIAL IM ONE (15:45)
[2016-07-28 16:16] VITALS: BP 138/87; PULSE 77; O2SAT 94
--- NOTE | 2016-07-28 16:18 | EMERGENCY ROOM VISIT NOTE ---
ED Visit Note First contact with patient: 15:24 CHIEF COMPLAINT: Migraine headache. HISTORY OF PRESENT ILLNESS: Mr. Zamudio is a 51 year-old white male who ambulates into the ED accompanied by his complaining of a migraine headache. He reports a gradual onset of a severe migraine headache that started approximately 48 hours ago. The pain is constant and it is slowly increasing in severity. This is not the worst headache of the life and is similar to previous migraines. Currently he describes the headache as a achy/throbbing sensation/pain in the occipital area. He rates the pain a 9/10. The pain is radiating superiorly over the top of the head and then behind the eyes. He has not taken any medications for pain prior to arrival at the hospital. He has not identified any aggravating or alleviating factors related to the pain. There is been associated light sensitivity, nausea but no vomiting. He denies fever, chills, sweats, skin eruptions, skin color changes, dizziness, lightheadedness, visual changes, hearing changes, difficulty speaking, difficulty swallowing, difficulty ambulates/coordinating body movements, recent upper respiratory tract symptoms, sore throat, sinus congestion, neck pain/stiffness, chest pain, shortness of breath, abdominal pain, extremity weakness/numbness/tingling. REVIEW OF SYSTEMS: As noted above in History of Present Illness; all body systems were reviewed and found to be negative unless noted above otherwise. PAST MEDICAL HISTORY: Diverticulitis, status post umbilical hernia repair, appendectomy, cervical spine fusion and unspecified throat and shoulder surgeries. CURRENT MEDICATIONS: Medications Dose Route/Sig Max Daily Dose Days Date Category Dose Instructions Vitamin B-2 (Riboflavin) 100 Mg Tab 100 Mg PO BID 07/21/16 Reported Toprol-Xl (Metoprolol Succinate) 50 Mg Tabcr 50 Mg PO QAM 07/21/16 Reported Elavil (Amitriptyline HCl) 50 Mg Tab 25 Mg PO HS 07/21/16 Reported Flexeril (Cyclobenzaprine Hcl) 5 Mg Tab 5 Mg PO HS 07/21/16 Reported PRN ALLERGIES TO MEDICATIONS: Citalopram, clonidine, Benadryl, Imitrex and zolmitriptan. SOCIAL HISTORY: Patient is currently employed; he lives with his mother and feels safe in his home environment; he denies tobacco and alcohol use. PHYSICAL EXAM: Vital Signs: Date Time Temp Pulse Resp B/P Pulse Ox O2 Delivery O2 Flow Rate FiO2 07/28/16 15:21 37.1 84 18 156/107 96 Room Air 81GENERAL: 51 year-old white male in moderate distress due to pain, afebrile and hemodynamically stable. Found sitting upright in a darkened room with baseball down over his face. NEUROLOGIC: Awake, alert and oriented to person place and time. Answering questions appropriately and following commands. Cranial nerves II-XII grossly intact. No focal neurologic deficits noted. Good short-term and long-term recall. SKIN: Warm, dry and pink. No rashes, lesions or soft tissue trauma noted. HEENT: Normocephalic, atraumatic. Pupils equal, round and reactive. Extraocular movements intact and there is no nystagmus. Sclera anicteric. Ears , nose and oropharynx clear. Funduscopic examination deferred. NECK: Soft and supple. No tenderness through the central cervical region or cervical musculature. Negative Kernigs and negative Brudzinski signs. No lymphadenopathy, jugular venous distention, or bruits noted. THORAX: Lungs clear to auscultation and equal bilaterally with no wheezing, crackles, rhonchi or stridor and equal chest wall movements. HEART: Regular rate and rhythm with no murmurs, rubs or gallops. ABDOMEN: Soft and nontender with bowel sounds present in all quadrants; no rigidity, rebound tenderness, organomegaly or guarding. MUSCULOSKELETAL: Full range of motion of all joints without any significant discomfort and the gait is normal. ED COURSE: Patient is assessed with history and physical examination. Patient was given 2 mg of the Dilaudid IM, 60 mg of Toradol IM and 25 mg of Phenergan IM for the pain and nausea. Patient was reassessed. Patient was educated about his condition and instructed on her treatment plan; his verbalized understanding and agreement with this plan. CLINICAL IMPRESSION: Migraine headache. DECISION MAKIN-year-old male who presents for evaluation of headache. He is afebrile, well appearing, and hemodynamically stable. He has no signs of a sinus, dental, or ear infection and no evidence of meningismus. He is neurologically intact. I do not suspect a headache to be secondary to a subarachnoid hemorrhage, meningitis, encephalitis, or intracranial mass lesion. DISPOSITION: Patient was discharged to home in stable condition accompanied by his ; prior to departure he was reassessed and subjectively reported he was feeling much better and rated his discomfort 6/10. DISCHARGE INSTRUCTIONS: Rest at home, in a quiet darkened room and allow the medication to work for the pain. Continue to follow up current treatment plan prescribed by your physician for your migraine headaches. See your own doctor in follow-up this week for continued care and treatment. Return to the ED as needed for worsening/uncontrolled pain, any abnormal neurological symptoms, fevers or in accordance with your pain management plan.
[2016-07-28] MEDS ORDERED: AMT50 PO (20:17)
[2016-07-28] MEDS ORDERED: VITB2100 PO (20:17)
== END 2016-07-28 16:16 | disposition home or self-care (01) ==
LOC: C.EDB 15:21 → C.EDD 16:16
DX: G43.909 Migraine, unspecified, not intractable, without status migrainosus (principal); Z98.1 Arthrodesis status; Z79.899 Other long term (current) drug therapy

== ENCOUNTER 2016-08-11 19:41 | Emergency (ER) | payer OTHER ==
[~2016-08-11] VITALS: Ht 172.7 cm; Wt 103.5 kg
[~2016-08-11 19:41] MED LIST changes: +AMT50 PO; -TPRSR/25 PO; +VITB2100 PO
[2016-08-11 19:57] VITALS: TEMP 36.9; Ht 172.7 cm; Wt 103.5 kg
[2016-08-11] MEDS ORDERED: PROMETHAZINE HCL INJ 25 MG/ML 1 ML VIAL IM STA (20:13)
[2016-08-11] MEDS ORDERED: KETOROLAC TROMETHAMINE 60 MG/2 ML VIAL IM STA (20:13)
[2016-08-11] MEDS ORDERED: DEXAMETHASONE SOD INJ 4 MG/ML VIAL IM ONE (20:15)
[2016-08-11] MEDS ORDERED: CYCL5TAB PO (20:17)
--- NOTE | 2016-08-11 20:18 | EMERGENCY ROOM VISIT NOTE ---
ED Visit Note First contact with patient: 20:07 CHIEF COMPLAINT: Migraine headache HISTORY OF PRESENT ILLNESS: This 51-year-old male patient presented to the emergency department ambulatory with a gradual onset of a severe generalized headache that started last night. The patient states the migraine is similar to their typical migraines. There has been associated photophobia, phonophobia, and nausea. The patient denies fever or chills recently, and there is no weakness or numbness of the extremities. There is no difficulty with speech or vision. No trauma to the head and no neck pain. The pain is severe, constant, and it is slowly increasing in severity. The patient rates the pain as throbbing and and 10/10. The patient has taken no medication at home. This is not the worst headache of the life and is similar to previous migraines. Previous imaging studies of the brain have been normal. REVIEW OF SYSTEMS: A review of systems was performed with positives and pertinent negatives listed in the history of present illness. All other systems were reviewed and are negative. ALLERGIES: Citalopram, clonidine, sumatriptan, zolmitriptan MEDICATIONS: See med list PMH: Migraine headaches, hypertension SOCIAL HISTORY: The patient lives locally with family. Nonsmoker. PHYSICAL EXAM: Vital Signs: Reviewed Nurse's notes, vital signs stable. GENERAL : This is a 51-year-old male, who appears in pain, but non toxic in appearance and in no acute distress. MENTAL STATUS: Alert, oriented, and coherent. HEENT: Normocephalic. PERRLA. EOMI. Nares patent without nuchal rigidity. Tympanic membranes pearly tran without erythema or effusion bilaterally. Mucous membranes moist. NECK: Supple, no nuchal rigidity, nontender, no lymphadenopathy. HEART: Regular rhythm and normal rate without murmurs, ectopy, gallops, or rubs. LUNGS: Clear to auscultation bilaterally without wheezes, rales or rhonchi. No dullness to percussion. No accessory muscle use. No retractions. SKIN: Normal. NEUROLOGICAL: Pupils are round, equal and react to light. The optic fundi are normal and the discs are flat. The patient moves all extremities well and the gait is normal. EMERGENCY DEPARTMENT COURSE: I examined the patient. The patient is on a 2 narcotic injection per month treatment plan for their migraines. This is the patient's third visit this month and he was informed that he will not be receiving narcotics due to this. The patient was agreeable. He was given 25 mg Phenergan IM, 10 mg Decadron IM, and 60 mg Toradol IM, which has worked well for him in the past. The patient did report relief of his headache. The patient was hypertensive throughout his stay, but reported this is normal for his migraines. He was instructed to follow-up with his primary care provider for a recheck of his blood pressure this week. The differential diagnosis includes acute intracranial bleed, meningitis, encephalitis, mass or mass effect , sinusitis, infection, tumor, headache, temporal arteritis and carbon monoxide exposure, and migraine. The patient was discharged home in stable condition with his mother driving. DIAGNOSIS: Migraine headache Problem List Medical Problems: (1) Diverticulitis Status: Resolved (2) Diverticulitis Status: Resolved (3) Diverticulosis Status: Chronic (4) Headache Status: Resolved (5) Hypertension Status: Chronic (6) Migraine Status: Resolved (7) Migraines Status: Chronic (8) Pulmonary atelectasis Status: Resolved (9) Vomiting Status: Resolved Surgical Problems: (1) Appendectomy Status: Resolved (2) Cervical fusion Status: Resolved (3) Hx of resection of large bowel Status: Resolved Current/Historical Medications Scheduled Amitriptyline HCl (Amitriptyline HCl), 25 MG PO HS Cyclobenzaprine Hcl (Flexeril), 5 MG PO HS Metoprolol Succ (Toprol Xl) (Toprol-Xl), 50 MG PO QAM Allergies Coded Allergies: Citalopram (Verified Allergy, Unknown, unk, 07/21/16) Sumatriptan (Verified Adverse Reaction, Intermediate, THROAT SWELLING, 07/21) Clonidine (Verified Adverse Reaction, Unknown, vomiting, headache, 07/21/16) Headache, chills, vomiting, PT DOES NOT RMEMEBER THIS ALLERGY Zolmitriptan (Verified Adverse Reaction, Unknown, LETHARGY, 07/21/16) Vital Signs Date Time Temp Pulse Resp B/P Pulse Ox O2 Delivery O2 Flow Rate FiO2 08/11/16 20:46 73 18 171/114 96 Room Air 08/11/16 19:57 36.9 83 18 156/111 94 Room Air Medications Administered Medications (Trade) Dose Ordered Sig/Gladis Route Start Time Stop Time Status Last Admin Dose Admin Promethazine HCl (Phenergan Inj) 25 mg NOW STAT IM 08/11/16 20:13 08/11/16 20:14 DC 08/11/16 20:38 25 MG Ketorolac Tromethamine (Toradol Inj) 60 mg NOW STAT IM 08/11/16 20:13 08/11/16 20:14 DC 08/11/16 20:39 60 MG Dexamethasone Sodium Phosphate (Decadron Inj) 10 mg NOW ONCE IM 08/11/16 20:15 08/11/16 20:16 DC 08/11/16 20:38 10 MG Departure Information Impression Primary Impression: Migraine Dispostion Home / Self-Care Condition GOOD Referrals Marlon Godfrey, D.O. (PCP) Patient Instructions My [facility] Additional Instructions You have been treated in the Emergency Department for a Headache. You have received pain medicine in the emergency department which impairs your ability to operate a vehicle. It is illegal for you to drive after receiving these medicines. For pain control, you can use the following miuj-lvl-rykltew medicines (if >12 yo): - Regular strength (325mg/tab) Tylenol (acetaminophen) 2 tabs every 4-6 hours as needed. Do not exceed 12 tablets in a 24 hour period. Avoid taking more than 4 grams (4000 mg) of Tylenol per day. This includes any other sources of acetaminophen you may take on a regular basis. - Regular strength (200 mg/tab) Advil (ibuprofen) 1-2 tabs every 4-6 hours as needed. Do not exceed a dose of 3200 mg per day. You should schedule a follow-up appointment in 2-3 days with your Primary Care Provider or established Neurologist for further evaluation and treatment of your Headache. Return to the Emergency Department if your current symptoms worsen despite treatment course outlined above, or if you develop any of the following symptoms : intractable pain despite aforementioned treatment course, visual disturbances , loss of vision, unilateral weakness or facial drooping, slurring of speech, loss of coordination, or loss of consciousness.
[2016-08-11 20:46] VITALS: BP 171/114; PULSE 73; O2SAT 96
== END 2016-08-11 20:55 | disposition home or self-care (01) ==
LOC: C.EDB 19:42 → C.EDD 20:55
DX: G43.909 Migraine, unspecified, not intractable, without status migrainosus (principal); I10 Essential (primary) hypertension; Z98.1 Arthrodesis status; Z90.49 Acquired absence of other specified parts of digestive tract; Z79.899 Other long term (current) drug therapy

== ENCOUNTER 2016-08-19 18:40 | Emergency (ER) | payer OTHER ==
[~2016-08-19] VITALS: Ht 172.7 cm; Wt 104.5 kg
[~2016-08-19 18:40] MED LIST changes: -AMT50 PO; +CYCL5TAB PO; -VITB2100 PO
[2016-08-19 18:44] VITALS: TEMP 36.7; Ht 172.7 cm; Wt 104.5 kg
[2016-08-19] MEDS ORDERED: KETOROLAC TROMETHAMINE 60 MG/2 ML VIAL IM STA (18:57)
[2016-08-19] MEDS ORDERED: PROMETHAZINE HCL INJ 25 MG/ML 1 ML VIAL IM STA (18:57)
[2016-08-19] MEDS ORDERED: HYDROmorphone INJ 2 MG/ML SYR/VIAL IM STA (18:57)
--- NOTE | 2016-08-19 19:01 | EMERGENCY ROOM VISIT NOTE ---
ED Visit Note First contact with patient: 18:46 CHIEF COMPLAINT: Migraine headache HISTORY OF PRESENT ILLNESS: This 51-year-old male patient presented to the emergency department ambulatory with a gradual onset of a severe generalized headache that started 2 days ago. The patient states the migraine is similar to their typical migraines. There has been associated photophobia, phonophobia, nausea and vomiting. The patient denies fever or chills recently, and there is no weakness or numbness of the extremities. There is no difficulty with speech or vision. No trauma to the head and no neck pain. The pain is severe, constant , and it is slowly increasing in severity. The patient rates the pain as throbbing and and 9/10. The patient has taken no medication at home for his symptoms. This is not the worst headache of the life and is similar to previous migraines. Previous imaging studies of the brain have been normal. REVIEW OF SYSTEMS: A review of systems was performed with positives and pertinent negatives listed in the history of present illness. All other systems were reviewed and are negative. ALLERGIES: Citalopram, clonidine, sumatriptan, zolmitriptan MEDICATIONS: Metoprolol, amitriptyline PMH: Migraine headaches SOCIAL HISTORY: The patient lives locally with family. Nonsmoker. PHYSICAL EXAM: Vital Signs: Reviewed Nurse's notes, vital signs stable. GENERAL : This is a 51-year-old male, who appears in pain, but non toxic in appearance and in no acute distress. MENTAL STATUS: Alert, oriented, and coherent. HEENT: Normocephalic. PERRLA. EOMI. Nares patent without nuchal rigidity. Tympanic membranes pearly tran without erythema or effusion bilaterally. Mucous membranes moist. NECK: Supple, no nuchal rigidity, nontender, no lymphadenopathy. HEART: Regular rhythm and normal rate without murmurs, ectopy, gallops, or rubs. LUNGS: Clear to auscultation bilaterally without wheezes, rales or rhonchi. No dullness to percussion. No accessory muscle use. No retractions. SKIN: Normal. NEUROLOGICAL: Pupils are round, equal and react to light. The optic fundi are normal and the discs are flat. The patient moves all extremities well and the gait is normal. EMERGENCY DEPARTMENT COURSE: I examined the patient. The patient is on a 2 narcotic injection per month treatment plan for their migraines. The patient was given 2 mg Dilaudid IM, 60 mg Toradol IM and 25 mg Phenergan IM per their usual protocol. The differential diagnosis includes acute intracranial bleed, meningitis, encephalitis, mass or mass effect, sinusitis, infection, tumor, headache, temporal arteritis and carbon monoxide exposure, and migraine. The patient was discharged home in stable condition with his significant other driving. DIAGNOSIS: Migraine headache Problem List Medical Problems: (1) Diverticulitis Status: Resolved (2) Diverticulitis Status: Resolved (3) Diverticulosis Status: Chronic (4) Headache Status: Resolved (5) Hypertension Status: Chronic (6) Migraine Status: Resolved (7) Migraines Status: Chronic (8) Pulmonary atelectasis Status: Resolved (9) Vomiting Status: Resolved Surgical Problems: (1) Appendectomy Status: Resolved (2) Cervical fusion Status: Resolved (3) Hx of resection of large bowel Status: Resolved Current/Historical Medications Scheduled Amitriptyline HCl (Amitriptyline HCl), 25 MG PO HS Cyclobenzaprine Hcl (Flexeril), 5 MG PO HS Metoprolol Succ (Toprol Xl) (Toprol-Xl), 50 MG PO QAM Allergies Coded Allergies: Citalopram (Verified Allergy, Unknown, unk, 07/21/16) Sumatriptan (Verified Adverse Reaction, Intermediate, THROAT SWELLING, 07/21) Clonidine (Verified Adverse Reaction, Unknown, vomiting, headache, 07/21/16) Headache, chills, vomiting, PT DOES NOT RMEMEBER THIS ALLERGY Zolmitriptan (Verified Adverse Reaction, Unknown, LETHARGY, 07/21/16) Vital Signs Date Time Temp Pulse Resp B/P Pulse Ox O2 Delivery O2 Flow Rate FiO2 08/19/16 18:44 36.7 105 18 154/95 94 Room Air Departure Information Impression Primary Impression: Migraine Dispostion Home / Self-Care Condition GOOD Referrals No Doctor, Assigned (PCP) Patient Instructions My [facility] Additional Instructions You have been treated in the Emergency Department for a Headache. You have received pain medicine in the emergency department which impairs your ability to operate a vehicle. It is illegal for you to drive after receiving these medicines. Continue medications at home as prescribed. Follow-up with your own doctor as needed. Return to the Emergency Department if your current symptoms worsen despite treatment course outlined above, or if you develop any of the following symptoms : intractable pain despite aforementioned treatment course, visual disturbances , loss of vision, unilateral weakness or facial drooping, slurring of speech, loss of coordination, or loss of consciousness. Problem Qualifiers Primary Impression: Migraine Migraine type: unspecified Status migrainosus presence: without status migrainosus Intractability: not intractable Qualified Codes: G43.909 - Migraine, unspecified, not intractable, without status migrainosus
[2016-08-19 19:26] VITALS: BP 141/100; PULSE 100; O2SAT 92
== END 2016-08-19 19:29 | disposition home or self-care (01) ==
LOC: C.EDB 18:41 → C.EDD 19:29
DX: G43.909 Migraine, unspecified, not intractable, without status migrainosus (principal); K57.90 Diverticulosis of intestine, part unspecified, without perforation or abscess without bleeding; I10 Essential (primary) hypertension

== ENCOUNTER 2016-08-25 15:54 | Emergency (ER) | payer OTHER ==
[~2016-08-25] VITALS: Ht 172.7 cm; Wt 101.9 kg
[2016-08-25 16:11] VITALS: TEMP 36.7; Ht 172.7 cm; Wt 101.9 kg
[2016-08-25] MEDS ORDERED: KETOROLAC TROMETHAMINE 60 MG/2 ML VIAL IM STA (16:25)
[2016-08-25] MEDS ORDERED: PROMETHAZINE HCL INJ 25 MG/ML 1 ML VIAL IM STA (16:25)
[2016-08-25] MEDS ORDERED: HYDROmorphone INJ 2 MG/ML SYR/VIAL IM ONE (16:30)
--- NOTE | 2016-08-25 16:50 | EMERGENCY ROOM VISIT NOTE ---
ED Visit Note First contact with patient: 16:18 CHIEF COMPLAINT: Migraine headache HISTORY OF PRESENT ILLNESS: This 51-year-old male patient presented to the emergency department this evening with a gradual onset of a severe generalized headache that started around 11 AM this morning. The patient states the migraine is similar to their typical migraines. There has been associated photophobia, phonophobia, nausea and without vomiting. The patient denies fever or chills recently, and there is no weakness or numbness of the extremities. There is no difficulty with speech or vision. No trauma to the head and no neck pain. The pain is severe, constant, and it is slowly increasing in severity. The patient rates the pain as constant and 10/10. The patient has taken Amitriptyline. This is not the worst headache of the life and is similar to previous migraines. Previous imaging studies of the brain have been normal. He has had burning of the nerves of the RIGHT sided neck with moderate relief of symptoms, but reports the LEFT-sided nerve burning did not work. REVIEW OF SYSTEMS: A review of systems was performed with positives and pertinent negatives listed in the history of present illness. All other systems were reviewed and are negative. ALLERGIES: Citalopram, clonidine, sumatriptan, Zolmitriptan MEDICATIONS: Reviewed and discussed with the patient. PMH: Migraine headaches. SOCIAL HISTORY: Patient is a 51-year-old male who lives locally. PHYSICAL EXAM: VITAL SIGNS - Vital signs and nursing notes were reviewed. GENERAL - 51-year-old male appearing his stated age who is in no acute distress. Communicates well with provider and answers questions appropriately. HEAD - Normocephalic, Atraumatic. No Worthington's Sign or Raccoon's Eyes. No depressed skull fractures palpable. EYES - PERRL with EOMI bilaterally. Sclera anicteric. Palpebral conjunctiva pink and moist with no injection noted. EARS - No deformities of external structures noted on gross examination bilaterally. No pain elicited with palpation of the tragus bilaterally. External auditory canals without discharge or otorrhea. Tympanic membranes pearly tran without retraction or bulging. NOSE - Midline and without cyanosis. No epistaxis or purulent drainage noted. Septum midline without deviation or septal hematoma noted. MOUTH/OROPHARYNX - Without perioral cyanosis. Buccal mucosa pink and moist and without leukoplakia. Tongue midline with equal elevation of palate bilaterally. No tonsillar hypertrophy, erythema, or exudates noted. NECK - Neck with FROM. Supple to palpation. No lymphadenopathy noted. No nuchal rigidity. LUNGS - Chest wall symmetric without accessory muscle use, intercostals retractions, or central cyanosis. Normal vesicular breath sounds CTA B/L. No wheezes, rales, or rhonchi appreciated. CARDIAC - RRR with S1/S2. No murmur, rubs, or gallops appreciated. EXTREMITIES - No pretibial edema present. +3/5 radial and dorsalis pedis pulses palpated throughout. FROM with no tremors, fasciculations, or clonus noted on PROM throughout. +5/5 strength noted in UE/LE bilaterally. NEUROLOGIC - Cranial nerves II through XII grossly intact. Sensory intact to light touch throughout. Patellar reflexes +2/4. Patient able to perform rapid alternating movements appropriately. Negative Romberg and Pronator Drift. Negative [id number]. PSYCH - A&Ox3 and cooperates fully with examiner. Pt is very pleasant and interacts well with examiner. EMERGENCY DEPARTMENT COURSE: I examined the patient. The patient is on a narcotic injection per month treatment plan for their migraines. The patient was given 2 mg Dilaudid, 60 mg Toradol, and 25 mg Phenergan intramuscularly per their usual protocol. The differential diagnosis includes acute intracranial bleed, meningitis, encephalitis, mass or mass effect, sinusitis, infection, tumor, headache, temporal arteritis and carbon monoxide exposure, and migraine. The patient was discharged home in stable condition with his relative driving. DIAGNOSIS: Migraine headache DISCHARGE INSTRUCTIONS & TREATMENT: You have been treated in the Emergency Department for a Headache. You have received pain medicine in the emergency department which impairs your ability to operate a vehicle. It is illegal for you to drive after receiving these medicines. For pain control, you can use the following kbnn-dle-[id number] medicines (if >12 yo): - Regular strength (325mg/tab) Tylenol (acetaminophen) 2 tabs every 4-6 hours as needed. Do not exceed 12 tablets in a 24 hour period. Avoid taking more than 4 grams (4000 mg) of Tylenol per day. This includes any other sources of acetaminophen you may take on a regular basis. - Regular strength (200 mg/tab) Advil (ibuprofen) 1-2 tabs every 4-6 hours as needed. Do not exceed a dose of 3200 mg per day. You should relax in a quiet, dark place for the rest of the day. Avoid any possible triggers including: cigarette smoke, caffeine, nicotine, chocolate, wine, beer, loud noises or music, or bright lights. You should schedule a follow-up appointment in 2-3 days with your Primary Care Provider or established Neurologist for further evaluation and treatment of your Headache. Return to the Emergency Department if your current symptoms worsen despite treatment course outlined above, or if you develop any of the following symptoms : intractable pain despite aforementioned treatment course, visual disturbances , loss of vision, unilateral weakness or facial drooping, slurring of speech, loss of coordination, or loss of consciousness. Problem List Medical Problems: (1) Diverticulitis Status: Resolved (2) Diverticulitis Status: Resolved (3) Diverticulosis Status: Chronic (4) Headache Status: Resolved (5) Hypertension Status: Chronic (6) Migraine Status: Resolved (7) Migraines Status: Chronic (8) Pulmonary atelectasis Status: Resolved (9) Vomiting Status: Resolved Surgical Problems: (1) Appendectomy Status: Resolved (2) Cervical fusion Status: Resolved (3) Hx of resection of large bowel Status: Resolved Current/Historical Medications Scheduled Amitriptyline HCl (Amitriptyline HCl), 25 MG PO HS Metoprolol Succ (Toprol Xl) (Toprol-Xl), 50 MG PO QAM Allergies Coded Allergies: Citalopram (Verified Allergy, Unknown, unk, 07/21/16) Sumatriptan (Verified Adverse Reaction, Intermediate, THROAT SWELLING, 07/21) Clonidine (Verified Adverse Reaction, Unknown, vomiting, headache, 07/21/16) Headache, chills, vomiting, PT DOES NOT RMEMEBER THIS ALLERGY Zolmitriptan (Verified Adverse Reaction, Unknown, LETHARGY, 07/21/16) Vital Signs Date Time Temp Pulse Resp B/P Pulse Ox O2 Delivery O2 Flow Rate FiO2 08/25/16 17:14 101 18 147/93 93 08/25/16 16:11 36.7 92 18 160/98 94 Room Air Medications Administered Medications (Trade) Dose Ordered Sig/Gladis Route Start Time Stop Time Status Last Admin Dose Admin Hydromorphone HCl (Dilaudid Inj) 2 mg NOW ONCE IM 08/25/16 16:30 08/25/16 16:31 DC 08/25/16 16:49 2 MG Promethazine HCl (Phenergan Inj) 25 mg NOW STAT IM 08/25/16 16:25 08/25/16 16:27 DC 08/25/16 16:48 25 MG Ketorolac Tromethamine (Toradol Inj) 60 mg NOW STAT IM 08/25/16 16:25 08/25/16 16:27 DC 08/25/16 16:49 60 MG Departure Information Impression Primary Impression: Migraine Dispostion Home / Self-Care Condition GOOD Referrals Marlon Godfrey D.O. (PCP) Patient Instructions My [facility] Additional Instructions You have been treated in the Emergency Department for a Headache. You have received pain medicine in the emergency department which impairs your ability to operate a vehicle. It is illegal for you to drive after receiving these medicines. For pain control, you can use the following yqjo-cdq-pmtwoww medicines (if >12 yo): - Regular strength (325mg/tab) Tylenol (acetaminophen) 2 tabs every 4-6 hours as needed. Do not exceed 12 tablets in a 24 hour period. Avoid taking more than 4 grams (4000 mg) of Tylenol per day. This includes any other sources of acetaminophen you may take on a regular basis. - Regular strength (200 mg/tab) Advil (ibuprofen) 1-2 tabs every 4-6 hours as needed. Do not exceed a dose of 3200 mg per day. You should relax in a quiet, dark place for the rest of the day. Avoid any possible triggers including: cigarette smoke, caffeine, nicotine, chocolate, wine, beer, loud noises or music, or bright lights. You should schedule a follow-up appointment in 2-3 days with your Primary Care Provider or established Neurologist for further evaluation and treatment of your Headache. Return to the Emergency Department if your current symptoms worsen despite treatment course outlined above, or if you develop any of the following symptoms : intractable pain despite aforementioned treatment course, visual disturbances , loss of vision, unilateral weakness or facial drooping, slurring of speech, loss of coordination, or loss of consciousness. Problem Qualifiers Primary Impression: Migraine Migraine type: unspecified Status migrainosus presence: without status migrainosus Intractability: not intractable Qualified Codes: G43.909 - Migraine, unspecified, not intractable, without status migrainosus
[2016-08-25 17:14] VITALS: BP 147/93; PULSE 101; O2SAT 93
== END 2016-08-25 17:15 | disposition home or self-care (01) ==
LOC: C.EDB 15:54 → C.EDD 17:15
DX: G43.909 Migraine, unspecified, not intractable, without status migrainosus (principal); K57.90 Diverticulosis of intestine, part unspecified, without perforation or abscess without bleeding; I10 Essential (primary) hypertension; Z79.899 Other long term (current) drug therapy

== ENCOUNTER 2016-09-15 12:11 | Emergency (ER) | payer OTHER ==
[~2016-09-15] VITALS: Ht 172.7 cm; Wt 101.5 kg
[2016-09-15 12:13] VITALS: Ht 172.7 cm; Wt 101.5 kg
[2016-09-15 14:15] VITALS: TEMP 36.7
[2016-09-15] MEDS ORDERED: SODIUM CHLORIDE 0.9% 1000ML 1,000 ML IV STA (14:45)
[2016-09-15] MEDS ORDERED: METHYLPREDNISOLONE 125 MG VIAL IV STA (14:45)
[2016-09-15] MEDS ORDERED: PROMETHAZINE HCL INJ 12.5 MG in SODIUM CHLORIDE 0.9% 50ML 50 ML IV STA (14:45)
[2016-09-15] MEDS ORDERED: KETOROLAC TROMETHAMINE 30 MG/ML VIAL IV STA (14:45)
--- NOTE | 2016-09-15 14:56 | EMERGENCY ROOM VISIT NOTE ---
History Report prepared by Santos: Ed Givens Under the Supervision of: Dr. Samira Langford M.D. First contact with patient: 14:30 Chief Complaint: DEHYDRATION Stated Complaint: DEHYDRATED - MIGRAINE Nursing Triage Summary: Diarrhea tday 5-6 times. Yesterday "It was constant." per the mother. History of Present Illness The patient is a 51 year old male who presents to the Emergency Room with complaints of persistent diarrhea occurring for the past few days. He denies any blood in stool. The patient had a subjective fever yesterday but denies a fever today. He reports chills today. He reports generalized body aches. He also complains of a headache which is similar to his past migraine headaches. He notes nausea but denies vomiting. He denies any recent antibiotics. The patient denies chest pain, shortness of breath, or any other complaints. Source of History: patient Onset: a few days ago Position: other (global) Quality: other (diarrhea) Timing: other (persistent) Associated Symptoms: + chills, + fevers (subjective), + headache, + nausea, No SOB, No chest pain, No vomiting Review of Systems See HPI for pertinent positives & negatives. A total of 10 systems reviewed and were otherwise negative. Past Medical & Surgical Medical Problems: (1) Diverticulitis (2) Diverticulitis (3) Diverticulosis (4) Headache (5) Hypertension (6) Migraine (7) Migraines (8) Pulmonary atelectasis (9) Vomiting Surgical Problems: (1) Appendectomy (2) Cervical fusion (3) Hx of resection of large bowel Family History FH: cancer FH: diabetes mellitus GRANDMOTHER FH: heart disease FATHER GRANDFATHER FH: stroke GRANDMOTHER Social History Smoking Status: Never Smoker Alcohol Use: none Drug Use: none Marital Status: single Housing Status: lives with family Occupation Status: employed Current/Historical Medications Scheduled Amitriptyline HCl (Amitriptyline HCl), 25 MG PO HS Cyclobenzaprine Hcl (Flexeril), 1 TAB PO HS Metoprolol Succ (Toprol Xl) (Toprol-Xl), 50 MG PO QAM Allergies Coded Allergies: Citalopram (Verified Allergy, Unknown, unk, 09/15/16) Sumatriptan (Verified Adverse Reaction, Intermediate, THROAT SWELLING, ) Clonidine (Verified Adverse Reaction, Unknown, vomiting, headache, 09/15/16 ) Headache, chills, vomiting, PT DOES NOT RMEMEBER THIS ALLERGY Zolmitriptan (Verified Adverse Reaction, Unknown, LETHARGY, 09/15/16) Physical Exam Vital Signs Date Time Temp Pulse Resp B/P Pulse Ox O2 Delivery O2 Flow Rate FiO2 09/15/16 17:02 80 18 144/99 95 Room Air 09/15/16 15:23 78 09/15/16 14:41 79 16 152/103 93 09/15/16 14:15 36.7 88 20 158/111 98 09/15/16 12:13 36.7 90 20 159/113 94 Room Air Physical Exam Vital signs reviewed. General: Well-appearing, in no significant distress. HEENT: No scleral icterus, PERRLA, neck supple. Atraumatic. No meningeal signs. Cardiovascular: Regular rate and rhythm, no extra sounds. Pulmonary: Clear to auscultation bilaterally, normal work of breathing. Abdomen: Soft, nontender, nondistended, positive bowel sounds. Musculoskeletal: Atraumatic, no peripheral edema. Neurologic: Patient awake alert and oriented x 3, full strength in all 4 extremities. Cranial nerves 2 through 12 grossly intact. Skin: Warm, dry, no rash Medical Decision & Procedures Laboratory Results 09/15/16 15:30 Red Blood Count 4.67, Mean Corpuscular Volume 94.0, Mean Corpuscular Hemoglobin 33.0, Mean Corpuscular Hemoglobin Concent 35.1, Mean Platelet Volume 8.4, Neutrophils (%) (Auto) 50.5, Lymphocytes (%) (Auto) 31.2, Monocytes (%) (Auto) 16.5, Eosinophils (%) (Auto) 1.3, Basophils (%) (Auto) 0.1, Neutrophils # (Auto ) 4.13, Lymphocytes # (Auto) 2.55, Monocytes # (Auto) 1.35, Eosinophils # (Auto ) 0.11, Basophils # (Auto) 0.01 09/15/16 15:30 Test 09/15/16 15:30 White Blood Count 8.18 K/uL (4.8-10.8) Red Blood Count 4.67 M/uL (4.7-6.1) Hemoglobin 15.4 g/dL (14.0-18.0) Hematocrit 43.9 % (42-52) Mean Corpuscular Volume 94.0 fL (80-100) Mean Corpuscular Hemoglobin 33.0 pg (25-34) Mean Corpuscular Hemoglobin Concent 35.1 g/dl (32-36) Platelet Count 272 K/uL (130-400) Mean Platelet Volume 8.4 fL (7.4-10.4) Neutrophils (%) (Auto) 50.5 % Lymphocytes (%) (Auto) 31.2 % Monocytes (%) (Auto) 16.5 % Eosinophils (%) (Auto) 1.3 % Basophils (%) (Auto) 0.1 % Neutrophils # (Auto) 4.13 K/uL (1.4-6.5) Lymphocytes # (Auto) 2.55 K/uL (1.2-3.4) Monocytes # (Auto) 1.35 K/uL (0.11-0.59) Eosinophils # (Auto) 0.11 K/uL (0-0.5) Basophils # (Auto) 0.01 K/uL (0-0.2) RDW Standard Deviation 42.1 fL (36.4-46.3) RDW Coefficient of Variation 12.4 % (11.5-14.5) Immature Granulocyte % (Auto) 0.4 % Immature Granulocyte # (Auto) 0.03 K/uL (0.00-0.02) Anion Gap 9.0 mmol/L (3-11) Est Creatinine Clear Calc Drug Dose 105.3 ml/min Estimated GFR () 104.5 Estimated GFR (Non- 90.2 BUN/Creatinine Ratio 10.7 (10-20) Calcium Level 9.2 mg/dl (8.5-10.1) Magnesium Level mg/dl (1.8-2.4) Total Bilirubin 0.4 mg/dl (0.2-1) Direct Bilirubin mg/dl (0-0.2) Aspartate Amino Transf (AST/SGOT) U/L (15-37) Alanine Aminotransferase (ALT/SGPT) 78 U/L (12-78) Alkaline Phosphatase 57 U/L (45-117) Total Protein 8.0 gm/dl (6.4-8.2) Albumin 3.8 gm/dl (3.4-5.0) Lipase 157 U/L (73-393) Laboratory results per my review. Medications Administered Medications (Trade) Dose Ordered Sig/Gladis Route Start Time Stop Time Status Last Admin Dose Admin Promethazine HCl/ Sodium Chloride (Phenergan Inj/ Nss 50ml) 50.5 ml @ 204 mls/hr NOW STAT IV 09/15/16 14:45 09/15/16 14:59 DC 09/15/16 15:02 204 MLS/HR Ketorolac Tromethamine (Toradol Inj) 30 mg NOW STAT IV 09/15/16 14:45 09/15/16 14:47 DC 09/15/16 15:02 30 MG Methylprednisolone Sodium Succinate 125 mg 125 mg NOW STAT IV 09/15/16 14:45 09/15/16 14:48 DC 09/15/16 15:03 125 MG Sodium Chloride (Nss 1000ml) 1,000 ml @ 999 mls/hr Q1H1M STAT IV 09/15/16 14:45 09/15/16 15:45 DC 09/15/16 15:03 999 MLS/HR ED Course 1430: Past medical records reviewed. The patient was evaluated in room C06. A complete history and physical examination was performed. Medical Decision Differential diagnosis: Etiologies such as migraine headache, meningitis, sinusitis, CO exposure, ICH, SAH, infection, tumor, headache, sinus thrombosis, arterial dissection, as well as others were entertained. This patient was evaluated and appeared to be in no significant distress. IV access was obtained and laboratory work was drawn. The patient was placed on the telemetry monitor and found to be in a normal sinus rhythm. He was given IV Phenergan, IV Toradol and IV Solu-Medrol. Patient was hydrated with normal saline solution. Laboratory work is unrevealing. The patient was feeling improved after the above interventions. Patient was discharged in care of his mother to continue his medications as prescribed. He will return to the ER for worsening of symptoms or any medical concerns. Impression Primary Impression: Migraine headache Additional Impression: Diarrhea Scribe Attestation The scribe's documentation has been prepared under my direction and personally reviewed by me in its entirety. I confirm that the note above accurately reflects all work, treatment, procedures, and medical decision making performed by me. Departure Information Dispostion Home / Self-Care Referrals Marlon Godfrey D.O. (PCP) Forms HOME CARE DOCUMENTATION FORM, IMPORTANT VISIT INFORMATION, WORK / SCHOOL INSTRUCTIONS Patient Instructions My [facility] [employer] Additional Instructions Diagnosis: Headache, diarrhea Drink plenty of clear fluids. Resume your medications as prescribed. Follow-up with your physician this week for reevaluation. Return to the ER for worsening of symptoms or any medical concerns. Problem Qualifiers Primary Impression: Migraine headache Migraine type: without aura Status migrainosus presence: with status migrainosus Intractability: intractable Qualified Codes: G43.011 - Migraine without aura, intractable, with status migrainosus Additional Impression: Diarrhea Diarrhea type: presumed infectious Qualified Codes: A09 - Infectious gastroenteritis and colitis, unspecified
[2016-09-15] MEDS ORDERED: CYCL10TA6 PO (15:02)
[2016-09-15 15:40] LABS: BASO % 0.1 %; BASO ABS # 0.01 K/uL (0-0.2); COMPLETE YES; EOS % 1.3 %; HEMATOCRIT 43.9 % (42-52); IG% 0.4 %; LYMPH % 31.2 %; LYMPH ABS # 2.55 K/uL (1.2-3.4); MEAN CORPUSCULAR HGB CONC 35.1 g/dl (32-36); MEAN PLATELET VOLUME 8.4 fL (7.4-10.4); MONO % 16.5 %; NEUT % 50.5 %; PLATELET COUNT 272 K/uL (130-400); RED BLOOD COUNT 4.67 M/uL (4.7-6.1); WHITE BLOOD COUNT 8.18 K/uL (4.8-10.8)
[2016-09-15 16:27] LABS: ALKALINE PHOSPHATASE 57 U/L (45-117); ALT/SGPT 78 U/L (12-78); BLOOD UREA NITROGEN 10 mg/dl (7-18); BUN/CREATININE RATIO 10.7 (10-20); CALCIUM 9.2 mg/dl (8.5-10.1); CARBON DIOXIDE 26 mmol/L (21-32); CHLORIDE 105 mmol/L (98-107); CREATININE 0.98 mg/dl (0.60-1.40); GLUCOSE 77 mg/dl (70-99); SODIUM 140 mmol/L (136-145)
[2016-09-15 17:02] VITALS: BP 144/99; PULSE 80; O2SAT 95
== END 2016-09-15 17:32 | disposition home or self-care (01) ==
LOC: C.EDB 12:12 → C.EDC 17:32
DX: G43.011 Migraine without aura, intractable, with status migrainosus (principal); A09 Infectious gastroenteritis and colitis, unspecified; K57.90 Diverticulosis of intestine, part unspecified, without perforation or abscess without bleeding; I10 Essential (primary) hypertension; Z83.3 Family history of diabetes mellitus

== ENCOUNTER 2016-09-18 12:46 | Emergency (ER) | payer OTHER ==
[~2016-09-18] VITALS: Ht 172.7 cm; Wt 102.5 kg
[~2016-09-18 12:46] MED LIST changes: +CYCL10TA6 PO; -CYCL5TAB PO
[2016-09-18 12:50] VITALS: TEMP 36.6; Ht 172.7 cm; Wt 102.5 kg
[2016-09-18] MEDS ORDERED: KETOROLAC TROMETHAMINE 60 MG/2 ML VIAL IM STA (13:09)
[2016-09-18] MEDS ORDERED: HYDROmorphone INJ 1 MG/ML SYR IM STA (13:09)
[2016-09-18] MEDS ORDERED: PROMETHAZINE HCL INJ 25 MG/ML 1 ML VIAL IM STA (13:09)
--- NOTE | 2016-09-18 13:16 | EMERGENCY ROOM VISIT NOTE ---
History First contact with patient: 13:10 Chief Complaint: HEADACHE Stated Complaint: MIGRAINE, HX OF MIGRAINES History of Present Illness The patient is a 51 year old male who presents to the Emergency Room with complaints of a migraine headache since approximately 8 AM this morning when he awoke. The patient reports nausea, vomiting, photophobia and phonophobia. The patient has a history of chronic migraines, and reports that this is no different than his prior headaches. He denies any recent head injury, upper respiratory infection or risk of carbon monoxide exposure. He denies any unusual facial sensations, difficulty with swallowing or speech. He reports neck discomfort. He has had radiofrequency ablation in the past at the [facility]. He currently rates his headache a 10 out of 10. Review of Systems 10 system review was performed and was negative except for pertinent positives and negatives as indicated in history of present illness Past Medical/Surgical History Medical Problems: (1) Diverticulitis (2) Diverticulitis (3) Diverticulosis (4) Headache (5) Hypertension (6) Migraine (7) Migraines (8) Pulmonary atelectasis (9) Vomiting Surgical Problems: (1) Appendectomy (2) Cervical fusion (3) Hx of resection of large bowel Family History FH: cancer FH: diabetes mellitus GRANDMOTHER FH: heart disease FATHER GRANDFATHER FH: stroke GRANDMOTHER Social History Smoking Status: Never Smoker Alcohol Use: none Drug Use: none Marital Status: single Housing Status: lives with family Occupation Status: employed Current/Historical Medications Scheduled Amitriptyline HCl (Amitriptyline HCl), 25 MG PO HS Cyclobenzaprine Hcl (Flexeril), 1 TAB PO HS Metoprolol Succ (Toprol Xl) (Toprol-Xl), 50 MG PO QAM Allergies Coded Allergies: Citalopram (Verified Allergy, Unknown, unk, 09/15/16) Sumatriptan (Verified Adverse Reaction, Intermediate, THROAT SWELLING, ) Clonidine (Verified Adverse Reaction, Unknown, vomiting, headache, 09/15/16 ) Headache, chills, vomiting, PT DOES NOT RMEMEBER THIS ALLERGY Zolmitriptan (Verified Adverse Reaction, Unknown, LETHARGY, 09/15/16) Physical Exam Vital Signs Date Time Temp Pulse Resp B/P Pulse Ox O2 Delivery O2 Flow Rate FiO2 09/18/16 12:50 36.6 98 16 165/114 95 Room Air Physical Exam CONSTITUTIONAL: Healthy and well nourished. Alert and oriented X 3 with positive affect. Patient appears in moderate discomfort from pain. HEENT: Normocephalic, atraumatic. Pupils equal, round and reactive. She is photophobic, precluding funduscopic exam. NECK: Full active range of motion without discomfort. No JVD or carotid bruits. No nuchal rigidity. RESPIRATORY: Clear to auscultation bilaterally with no wheezing, crackles, rhonchi or stridor. CARDIOVASCULAR: Regular rate and rhythm with no murmurs, rubs or gallops. MUSCULOSKELETAL: Full range of motion of all joints without discomfort. INTEGUMENTARY: No rash or other significant dermatologic conditions noted. NEUROLOGIC: Cranial nerves II-XII grossly intact. No focal neurologic deficits noted. Normal finger to nose test. Negative pronator drift. No ataxia with ambulation. Medical Decision & Procedures ED Course Patient history and physical exam were performed. Nurse's notes were reviewed. Vital signs were reviewed, showing a blood pressure 165/114. Review medical records also shows that the patient is currently on a treatment plan and narcotic restriction. I also reviewed the patient's last visit notes from the pain clinic. It was agreed that the patient was to return to the emergency department for a diagnostic occipital nerve block. That was in March. When asking the patient about the status of this intervention, he reports that he forgot about that plan. Plus his work schedule did not allow him to take advantage of this option as he was told that they would not do any nerve block past 3 PM, conflicting with his work schedule. According to the patient's treatment plan, he was administered Dilaudid 2 mg, Toradol 60 mg and Phenergan 25 mg IM. The patient requested immediate discharge home after his injections. He was instructed to rest and remain well- hydrated. He was encouraged to contact the pain clinic for further reevaluation. He may certainly return to the emergency department as needed for further migraine management, with limitations of his treatment plan. The patient voiced understanding of all discharge instructions, and rated his pain an 8 out of 10 at the time of discharge. Medical Decision Patient has a long-standing history of chronic migraines, and is currently under the management of the pain clinic. He did have moderate relief of migraines with an right-sided radiofrequency ablation. He did not respond as well to a left-sided ablation. Based on patient history and physical exam findings, I do not suspect meningitis, abscess, intracranial bleed, CVA/TIA, thromboembolic event or carbon monoxide poisoning. Impression Primary Impression: Migraine Departure Information Referrals Marlon Godfrey D.O. (PCP) Patient Instructions My [facility]
[2016-09-18 13:34] VITALS: BP 165/114; PULSE 98; O2SAT 95
== END 2016-09-18 13:35 | disposition home or self-care (01) ==
LOC: C.EDB 12:48 → C.EDC 13:35
DX: G43.909 Migraine, unspecified, not intractable, without status migrainosus (principal); I10 Essential (primary) hypertension; Z98.1 Arthrodesis status; Z90.49 Acquired absence of other specified parts of digestive tract; Z80.9 Family history of malignant neoplasm, unspecified; Z83.3 Family history of diabetes mellitus; Z82.3 Family history of stroke; Z79.899 Other long term (current) drug therapy

== ENCOUNTER 2016-09-23 18:48 | Emergency (ER) | payer OTHER ==
[~2016-09-23] VITALS: Ht 172.7 cm; Wt 97.7 kg
[2016-09-23 18:51] VITALS: TEMP 36.9; Ht 172.7 cm; Wt 97.7 kg
[2016-09-23] MEDS ORDERED: HYDROmorphone INJ 2 MG/ML SYR/VIAL IM STA (19:36)
[2016-09-23] MEDS ORDERED: PROMETHAZINE HCL INJ 25 MG/ML 1 ML VIAL IM STA (19:36)
[2016-09-23] MEDS ORDERED: KETOROLAC TROMETHAMINE 60 MG/2 ML VIAL IM STA (19:36)
[2016-09-23 20:08] VITALS: BP 152/93; PULSE 78; O2SAT 98
--- NOTE | 2016-09-23 23:17 | EMERGENCY ROOM VISIT NOTE ---
ED Visit Note First contact with patient: 18:59 CHIEF COMPLAINT: Migraine headache since yesterday HISTORY OF PRESENT ILLNESS: Patient is a 51-year-old white male who presents to the emergency department accompanied by his mother for evaluation of a migraine headache that started yesterday. Patient has a long-standing history of migraines migraines, and states that this feels similar. He is known to the emergency department for frequent visits, and is on a treatment plan restricting him to 2 narcotic injections per month. He describes a left sided temporal/retroorbital headache associated with nausea, photo and phonophobia. He has taken nothing for his symptoms. The patient is under the care of pain management, but has not seen them since March 2016. He recently underwent left sided C2 and C3 medial branch and third occipital nerve radiofrequency ablation, however they were ineffective in alleviating his symptoms. He had previously undergone right-sided radiofrequency ablation at the same locations with complete resolution of his right-sided symptoms. Patient has been placed on the headache list to call their office on the day of a headache to come in for evaluation, however the patient states that due to his work schedule he has been unable to get in, as he states that he cannot get injections" after 3:00." He rates his headache a 9/10 presently. Patient has not been ill recently. He states that this is typical of his usual migraine phenomenon. He denies weakness or numbness of the extremities. There is no difficulty with balance, coordination, speech or vision. REVIEW OF SYSTEMS: Review of systems as per HPI. All other systems reviewed were negative. 10 systems reviewed. PMH: Electronic medical records are reviewed and summarized as above/below. See Problem List. Pain management notes were reviewed. SOCIAL HISTORY: Patient lives at home. Nonsmoker. He is employed. PHYSICAL EXAM: Vital Signs: Reviewed Nurse's notes. General Appearance: Patient is a well-developed, well-nourished 51-year-old white male who is awake and alert and in no acute distress.. He is seated in the exam room room with his mother at the bedside. Eyes: Pupils equal round reactive to light extraocular muscles are intact, no proptosis, mild photophobia . Funduscopic exam could not be performed secondary to photophobia. ENT: Oropharynx is clear, mucous membranes are moist, tympanic membranes are clear bilaterally, no sinus or dental tenderness Neck: Supple, no cervical lymphadenopathy, no meningismus Heart: Regular rate and rhythm, S1 and S2 Lungs: Clear to auscultation bilaterally, no wheezes Rales or rhonchi, no increased work of breathing Abdomen: Soft, nondistended, slightly tender in the left upper and lower abdomen. Normal active bowel sounds. No rebound. No guarding. Back: No midline tenderness to palpation. : No CVA tenderness to palpation. Skin: Warm, no diaphoresis, no rashes. Extremities: No cyanosis, clubbing, or edema Neurologic: Patient is awake alert, and oriented x 3. Cranial nerves 2-12 are grossly intact. Motor 5 out of 5 strength bilateral upper extremities and lower extremities. No gross sensory deficits. Reflexes are 2+ throughout. EMERGENCY DEPARTMENT COURSE: The patient was seen and evaluated as above. His old records were reviewed. He has similar visits to this emergency department in the past. He is on a 2 shot per month treatment plan with regards to his migraines. Since the beginning of 2016, he has typically presented to the emergency department 3 and even 4 times per month. This is his first visit for the month of September. He has a history of chronic neck pain and headaches. He has no worrisome physical exam findings or trauma to indicate further workup at this time. He was encouraged to get back in with pain management in order to discuss his symptoms, in addition to develop a treatment plan moving forward. He is medicated with Dilaudid 2 mg, Toradol 60 mg and Phenergan 25 mg IM per his treatment plan, which are usual doses for him. He requested to be discharged immediately, was discharged home to rest. He rated his pain a 6/10 at discharge. His mother is driving. Differential includes: acute intracranial bleed, meningitis, encephalitis, mass or mass effect, sinusitis, infection, migraine, tumor, headache, temporal arteritis and carbon monoxide exposures. Problem List Medical Problems: (1) Diverticulitis Status: Resolved (2) Diverticulitis Status: Resolved (3) Diverticulosis Status: Chronic (4) Headache Status: Resolved (5) Hypertension Status: Chronic (6) Migraine Status: Resolved (7) Migraines Status: Chronic (8) Pulmonary atelectasis Status: Resolved (9) Vomiting Status: Resolved Surgical Problems: (1) Appendectomy Status: Resolved (2) Cervical fusion Status: Resolved (3) Hx of resection of large bowel Status: Resolved Current/Historical Medications Scheduled Amitriptyline HCl (Amitriptyline HCl), 25 MG PO HS Metoprolol Succ (Toprol Xl) (Toprol-Xl), 50 MG PO QAM Allergies Coded Allergies: Citalopram (Verified Allergy, Unknown, unk, 09/23/16) Sumatriptan (Verified Adverse Reaction, Intermediate, THROAT SWELLING, 09/23) Clonidine (Verified Adverse Reaction, Unknown, vomiting, headache, 09/23/16) Headache, chills, vomiting, PT DOES NOT RMEMEBER THIS ALLERGY Zolmitriptan (Verified Adverse Reaction, Unknown, LETHARGY, 09/23/16) Vital Signs Date Time Temp Pulse Resp B/P Pulse Ox O2 Delivery O2 Flow Rate FiO2 09/23/16 20:08 78 20 152/93 98 09/23/16 18:51 36.9 76 16 150/101 100 Room Air Medications Administered Medications (Trade) Dose Ordered Sig/Gladis Route Start Time Stop Time Status Last Admin Dose Admin Hydromorphone HCl (Dilaudid Inj) 2 mg NOW STAT IM 09/23/16 19:36 09/23/16 19:38 DC 09/23/16 20:02 2 MG Ketorolac Tromethamine (Toradol Inj) 60 mg NOW STAT IM 09/23/16 19:36 09/23/16 19:38 DC 09/23/16 20:03 60 MG Promethazine HCl (Phenergan Inj) 25 mg NOW STAT IM 09/23/16 19:36 09/23/16 19:38 DC 09/23/16 20:03 25 MG Departure Information Impression Primary Impression: Headache Dispostion Home / Self-Care Condition GOOD Patient Instructions My [facility] Additional Instructions DO NOT drive, drink alcohol, operate machinery, or perform dangerous activities today. You were given medications in the ER that can affect your ability to safely function or operate a vehicle. Rest today in a quiet, peaceful, dark environment and get a full 8-10 hrs of sleep tonight. Avoid loud noises, smoke/smoking, alcohol, bright lights, stress, or physical exertion today to minimize the chance the headache may return. Continue current medications. Return to the ER for passing out, worsening headache, vision problems, neck stiffness/pain, fevers, vomiting, worsening of your condition, or as needed. Follow up with your primary physician in 2-3 days for a recheck of your current condition. Follow-up with your pain management physician for further care and evaluation of your migraine disorder.
== END 2016-09-23 20:11 | disposition home or self-care (01) ==
LOC: C.EDB 18:49 → C.EDD 20:11
DX: G43.909 Migraine, unspecified, not intractable, without status migrainosus (principal); M54.2 Cervicalgia; I10 Essential (primary) hypertension

== ENCOUNTER 2016-10-13 20:55 | Emergency (ER) | payer OTHER ==
[~2016-10-13] VITALS: Ht 172.7 cm; Wt 105.6 kg
[2016-10-13 20:57] VITALS: BP 154/103; TEMP 36.8; Ht 172.7 cm; Wt 105.6 kg
[2016-10-13] MEDS ORDERED: KETOROLAC TROMETHAMINE 60 MG/2 ML VIAL IM STA (21:24)
[2016-10-13 21:51] VITALS: PULSE 85; O2SAT 96
--- NOTE | 2016-10-14 15:32 | EMERGENCY ROOM VISIT NOTE ---
History First contact with patient: 20:59 Chief Complaint: HEADACHE Stated Complaint: MIGRAINE History of Present Illness The patient is a 51 year old male who presents to the Emergency Room with complaints of migraine headache for the past one day. The patient is well- known to the emergency department for chronic migraines. He has not had relief of his symptoms with [id number] medication. The patient states this is not the worst headache of his life. He is without fever, chills, neck pain, chest pain, or shortness of breath. No injury or trauma. This feels similar to his normal migraine. He rates his discomfort an 10/10. Review of Systems More than 10 systems were reviewed and otherwise negative with the exception of history of present illness. Past Medical/Surgical History Medical Problems: (1) Diverticulitis (2) Diverticulitis (3) Diverticulosis (4) Headache (5) Hypertension (6) Migraine (7) Migraines (8) Pulmonary atelectasis (9) Vomiting Surgical Problems: (1) Appendectomy (2) Cervical fusion (3) Hx of resection of large bowel Family History FH: cancer FH: diabetes mellitus GRANDMOTHER FH: heart disease FATHER GRANDFATHER FH: stroke GRANDMOTHER Social History Smoking Status: Never Smoker Alcohol Use: none Drug Use: none Marital Status: single Housing Status: lives with family Occupation Status: employed Current/Historical Medications Scheduled Amitriptyline HCl (Amitriptyline HCl), 25 MG PO HS Metoprolol Succ (Toprol Xl) (Toprol-Xl), 50 MG PO QAM Allergies Coded Allergies: Citalopram (Verified Allergy, Unknown, unk, 10/13/16) Sumatriptan (Verified Adverse Reaction, Intermediate, THROAT SWELLING, ) Clonidine (Verified Adverse Reaction, Unknown, vomiting, headache, 10/13/16 ) Headache, chills, vomiting, PT DOES NOT RMEMEBER THIS ALLERGY Zolmitriptan (Verified Adverse Reaction, Unknown, LETHARGY, 10/13/16) Physical Exam Vital Signs Date Time Temp Pulse Resp B/P Pulse Ox O2 Delivery O2 Flow Rate FiO2 10/13/16 21:51 85 20 96 10/13/16 20:57 36.8 103 20 154/103 97 Room Air Pain Rating (0-10): 10.0 Physical Exam VITALS: Vitals are noted on the nurse's note and reviewed by myself. Vital signs stable. GENERAL: Well-developed, well-nourished, white male who is seated in his ER room. The patient is in no acute distress. The lights are on and he is not photophobic. EYES: Pupils equal round and reactive to light and accommodation. Conjunctivae without injection, sclerae without icterus. Extraocular movements intact. NECK: Supple without nuchal rigidity. No lymphadenopathy. No thyromegaly. Cervical spine is nontender. HEART: Regular rate and rhythm without murmurs gallops or rubs. LUNGS: Clear to auscultation bilaterally without wheezes, rales or rhonchi. No retractions or accessory muscle use. NEURO: Patient was alert and oriented to person place and time. CN II through XII grossly intact. Medical Decision & Procedures Medications Administered Medications (Trade) Dose Ordered Sig/Gladis Route Start Time Stop Time Status Last Admin Dose Admin Ketorolac Tromethamine (Toradol Inj) 60 mg NOW STAT IM 10/13/16 21:24 10/13/16 21:25 DC 10/13/16 21:46 60 MG ED Course Physical exam and history were performed. Nursing notes and EMR were reviewed. Patient appears to have a migraine headache for the past one day. The patient is very well-known to the emergency department for his chronic migraines. He does not appear toxic and his symptoms are reportedly identical to his normal migraine. I had a lengthy and shante discussion with the patient regarding appropriate care for his chronic migraines. He is currently under a 2 shot per month treatment plan at this facility, and this is his third visit of the month for treatment. I explained that I would not be able to provide him care under his treatment plan as this has been exhausted. Review of the chart appears to show the patient has had 106 visits to the emergency department in the past 3 years, nearly all of which have been for migraine headaches. The patient regularly comes in 3 or 4 times per month expecting treatment outside of the treatment plan. He has a pattern of arriving on the first day of the month to get narcotics, and previously it has been documented that he is also going to [facility] for similar intervention. I discussed appropriate neurology follow-up, and the patient states that he had one visit to a neurologist years ago, and does not follow with neurology. The patient and I had a discussion regarding options of care. The patient requested IV intervention, which does not appear necessary. He will be receiving 60 mg IM Toradol and will be discharged home. The patient will not be receiving narcotics today. Overall I feel the patient should be advanced to a no narcotic treatment plan at this facility. He has increasing visits expecting narcotics, and is regularly coming outside of his treatment plan. He shows has a pattern of arriving on the first day of the month and is utilizing other facilities for narcotic intervention. He is not following with Neurology as he should. The patient is thoroughly aware that the emergency department is not able to provide chronic pain services, and after 3 years he has had ample opportunity to receive care under appropriate resources. The chart was completed utilizing [employer] Speech Voice Recognition Software. Grammatical errors, random word insertions, pronoun errors, and incomplete sentences are an occasional consequence of this system due to software limitations, ambient noise, and hardware issues. Any formal questions or concerns about the content, text, or information contained within the body of this dictation should be directly addressed to the provider for clarification. . Medical Decision The differential diagnosis includes, but is not limited to: acute intracranial bleed, meningitis, encephalitis, mass or mass effect, sinusitis, infection, tumor, headache, temporal arteritis and carbon monoxide exposure, and migraine. Impression Primary Impression: Migraine Departure Information Dispostion Home / Self-Care Condition GOOD Referrals Marlon Godfrye, D.O. (PCP) Forms HOME CARE DOCUMENTATION FORM, IMPORTANT VISIT INFORMATION Patient Instructions My [facility] Additional Instructions You were seen and evaluated today on an emergency basis only. This is not a substitute for, or an effort to provide, complete comprehensive medical care. It is not possible to recognize and treat all injuries or illnesses in a single emergency department visit. For this reason it is recommended that you followup with your primary care physician or neurologist this week for ongoing care and evaluation. Rest today in a quiet, peaceful, dark environment and get a full 8-10 hrs of sleep tonight. Avoid loud noises, smoke/smoking, alcohol, bright lights, stress, or physical exertion today to minimize the chance the headache may return. Continue current medications. Ibuprofen(Motrin, Advil) may be used for fever or pain. Use 600mg every six hours as needed. Take with food. Avoid using more than 2400mg in a 24 hour period. Do not use 2400mg per day for more than three consecutive days without physician direction. Prolonged inappropriate use can lead to stomach upset or ulcers. (AND/OR) Acetaminophen(Tylenol) may be used for fever or pain. Use 1000mg every six hours as needed. Avoid using more than 4000mg in a 24 hour period. Return to the ER for passing out, worsening headache, vision problems, neck stiffness/pain, fevers, vomiting, worsening of your condition, or as needed.
== END 2016-10-13 21:52 | disposition home or self-care (01) ==
LOC: C.EDB 20:56 → C.EDD 21:52
DX: G43.909 Migraine, unspecified, not intractable, without status migrainosus (principal); K57.90 Diverticulosis of intestine, part unspecified, without perforation or abscess without bleeding; I10 Essential (primary) hypertension; Z83.3 Family history of diabetes mellitus; Z82.3 Family history of stroke

== ENCOUNTER 2016-12-07 19:06 | Emergency (ER) | payer OTHER ==
[~2016-12-07] VITALS: Ht 172.7 cm; Wt 107.1 kg
[2016-12-07 19:08] VITALS: TEMP 36.8; Ht 172.7 cm; Wt 107.1 kg
[2016-12-07] MEDS ORDERED: KETOROLAC TROMETHAMINE 60 MG/2 ML VIAL IM STA (19:21)
[2016-12-07] MEDS ORDERED: HYDROmorphone INJ 2 MG/ML SYR/VIAL IM STA (19:21)
[2016-12-07] MEDS ORDERED: PROMETHAZINE HCL INJ 25 MG/ML 1 ML VIAL IM STA (19:21)
--- NOTE | 2016-12-07 19:30 | EMERGENCY ROOM VISIT NOTE ---
History Report prepared by Santos: Ed Givens Under the Supervision of: Dr. Spenser Flynn D.O. First contact with patient: 19:17 Chief Complaint: HEADACHE Stated Complaint: BAD MIGRAINE History of Present Illness The patient is a 51 year old male who presents to the Emergency Room with complaints of a severe and persistent headache starting this morning. The patient reports a sudden onset of pain. He describes his current headache to be similar to his typical migraine headache. His most recent episode of migraine headache occurred in September 2016. He has a history of hypertension. He forgot to take Metoprolol today. He denies any new medications. He denies fevers, chills, or any other complaints. Source of History: patient Onset: this morning Position: head Symptom Intensity: severe Timing: other (persistent) Associated Symptoms: No fevers, No chills Review of Systems See HPI for pertinent positives & negatives. A total of 10 systems reviewed and were otherwise negative. Past Medical & Surgical Medical Problems: (1) Diverticulitis (2) Diverticulitis (3) Diverticulosis (4) Headache (5) Hypertension (6) Migraine (7) Migraines (8) Pulmonary atelectasis (9) Vomiting Surgical Problems: (1) Appendectomy (2) Cervical fusion (3) Hx of resection of large bowel Family History FH: cancer FH: diabetes mellitus GRANDMOTHER FH: heart disease FATHER GRANDFATHER FH: stroke GRANDMOTHER Social History Smoking Status: Never Smoker Alcohol Use: none Drug Use: none Marital Status: single Housing Status: lives with family Occupation Status: employed Current/Historical Medications Scheduled Amitriptyline HCl (Amitriptyline HCl), 25 MG PO HS Metoprolol Succ (Toprol Xl) (Toprol-Xl), 50 MG PO QAM Allergies Coded Allergies: Citalopram (Verified Allergy, Unknown, unk, 10/24/16) Sumatriptan (Verified Adverse Reaction, Intermediate, THROAT SWELLING, 10/24) Clonidine (Verified Adverse Reaction, Unknown, vomiting, headache, 10/24/16) Headache, chills, vomiting, PT DOES NOT RMEMEBER THIS ALLERGY Zolmitriptan (Verified Adverse Reaction, Unknown, LETHARGY, 10/24/16) Physical Exam Vital Signs Date Time Temp Pulse Resp B/P (MAP) Pulse Ox O2 Delivery O2 Flow Rate FiO2 12/07/16 19:59 78 20 127/72 98 12/07/16 19:08 36.8 112 18 178/103 94 Room Air Physical Exam GENERAL: Patient is awake, alert, and in no acute distress. Patient is resting comfortably and showing no signs of anxiety EYES: The conjunctivae are clear. The pupils are round and reactive. EARS, NOSE, MOUTH AND THROAT: The nose is without any evidence of any deformity. Mucous membranes are moist tongue is midline NECK: The neck is nontender and supple. RESPIRATORY: Normal respiratory effort is noted there is no evidence of wheezing rhonchi or rales CARDIOVASCULAR: Regular rate and rhythm noted there no murmurs rubs or gallops normal S1 normal S2 GASTROINTESTINAL: The abdomen is soft. Bowel sounds are present in all quadrants. Abdomen is nontender MUSCULOSKELETAL/EXTREMITIES: There is no evidence of gross deformity full range of motion is noted in the hips and shoulders SKIN: There is no obvious evidence of any rash. There are no petechiae, pallor or cyanosis noted. NEUROLOGIC: Patient is awake alert and oriented x3 strength is symmetric patellar reflexes are 2+ bilaterally Medical Decision & Procedures Medications Administered Medications (Trade) Dose Ordered Sig/Gladis Route Start Time Stop Time Status Last Admin Dose Admin Hydromorphone HCl (Dilaudid Inj) 2 mg NOW STAT IM 12/07/16 19:21 12/07/16 19:22 DC 12/07/16 19:36 2 MG Ketorolac Tromethamine (Toradol Inj) 60 mg NOW STAT IM 12/07/16 19:21 12/07/16 19:22 DC 12/07/16 19:36 60 MG Promethazine HCl (Phenergan Inj) 25 mg NOW STAT IM 12/07/16 19:21 12/07/16 19:22 DC 12/07/16 19:36 25 MG ED Course 1916: The patient was evaluated in room C01B. A complete history and physical examination were performed. 1920: Phenergan Inj 25 mg IM, Toradol Inj 60 mg IM, Dilaudid Inj 2 mg IM 1949: Upon reevaluation, the patient is resting comfortably. I discussed the results and treatment plan with him. He verbalized agreement of the treatment plan. He was discharged home. Medical Decision Prior records/ancillary studies reviewed. Triage Nursing notes reviewed. The patient's history was concerning for headache. Differential diagnosis: Etiologies such as migraine headache, meningitis, sinusitis, CO exposure, ICH, SAH, infection, tumor, headache, sinus thrombosis, arterial dissection, as well as others were entertained. The patient is a 51-year-old male who presented to the emergency department for evaluation of headache. The patient states that this is consistent with his usual migraine headache. The patient was treated with medications he is received in the past. In subsequent reevaluation was feeling much better. He was encouraged to rest and avoid any strenuous activity. He did not have any meningismus fever or focal neurologic deficit. He was encouraged to follow-up with his primary care physician for reevaluation but return to the emergency department immediately if symptoms change worsen or the need arises. Medication Reconcilliation Current Medication List: was personally reviewed by me Blood Pressure Screening Patient's blood pressure: Elevated blood pressure Blood pressure disposition: Elevated BP felt to be situational Impression Primary Impression: Migraine headache Scribe Attestation The scribe's documentation has been prepared under my direction and personally reviewed by me in its entirety. I confirm that the note above accurately reflects all work, treatment, procedures, and medical decision making performed by me. Departure Information Dispostion Home / Self-Care Referrals Marlon Godfrey D.O. (PCP) Forms HOME CARE DOCUMENTATION FORM, IMPORTANT VISIT INFORMATION Patient Instructions Headaches Migraine and Tension, My [facility] Additional Instructions Rest and avoid any strenuous activity. Continue all medications as prescribed. Follow-up with your family this week for reevaluation. Problem Qualifiers Primary Impression: Migraine headache Migraine type: unspecified Status migrainosus presence: without status migrainosus Intractability: not intractable Qualified Codes: G43.909 - Migraine, unspecified, not intractable, without status migrainosus
[2016-12-07 19:59] VITALS: BP 127/72; PULSE 78; O2SAT 98
== END 2016-12-07 20:00 | disposition home or self-care (01) ==
LOC: C.EDB 19:08 → C.EDC 20:00
DX: G43.909 Migraine, unspecified, not intractable, without status migrainosus (principal); I10 Essential (primary) hypertension; Z98.1 Arthrodesis status; Z90.49 Acquired absence of other specified parts of digestive tract; Z90.89 Acquired absence of other organs; Z83.3 Family history of diabetes mellitus; Z82.3 Family history of stroke; Z79.899 Other long term (current) drug therapy

== ENCOUNTER 2016-12-17 19:30 | Emergency (ER) | payer OTHER ==
[~2016-12-17] VITALS: Ht 172.7 cm; Wt 106.3 kg
[2016-12-17 19:41] VITALS: TEMP 36.8; Ht 172.7 cm; Wt 106.3 kg
[2016-12-17] MEDS ORDERED: DiphenhydrAMINE HCL 50 MG/ML VIAL IV STA (19:52)
[2016-12-17] MEDS ORDERED: KETOROLAC TROMETHAMINE 30 MG/ML VIAL IV STA (19:52)
[2016-12-17] MEDS ORDERED: PROCHLORPERAZINE 5 MG/ML 2 ML VIAL IV STA (19:52)
[2016-12-17] MEDS ORDERED: SODIUM CHLORIDE 0.9% 1000ML 2,000 ML IV STA (19:52)
[2016-12-17] MEDS ORDERED: METHYLPREDNISOLONE 125 MG VIAL IV STA (19:52)
--- NOTE | 2016-12-17 19:54 | EMERGENCY ROOM VISIT NOTE ---
History Report prepared by Santos: Eric Caballero Under the Supervision of: Dr. Karan Correia M.D. First contact with patient: 19:45 Chief Complaint: HEADACHE Stated Complaint: MIGRAINE History of Present Illness The patient is a 51 year old male with a history of migraines who presents to the Emergency Room with complaints of a persistent left-sided migraine headache that started upon waking around 0930 this morning. He says that this is a typical migraine for him. He says that he has slept most of the day, and has not felt well. The patient has been nauseous, and vomited 45 minutes ago. He states that he has not taken any medications for the migraine today. The patient did take his Metoprolol a few hours ago. He notes that he has a history of diverticulitis with part of his intestine removed, and he started having aching left lower quadrant abdominal pain 4 days ago. The patient had a hernia operation in May of this year. He denies any shortness of breath, chest pain , back pain, fevers, neck stiffness, or rashes. Source of History: patient Onset: 0930 this morning Position: head, other Quality: other (migraine) Timing: other (persistent) Associated Symptoms: + nausea, + vomiting, + abdominal pain, No fevers, No chest pain, No SOB, No back pain, No rash Note: Associated symptoms: Denies neck stiffness. Review of Systems See HPI for pertinent positives & negatives. A total of 10 systems reviewed and were otherwise negative. Past Medical & Surgical Medical Problems: (1) Diverticulitis (2) Diverticulitis (3) Diverticulosis (4) Headache (5) Hypertension (6) Migraine (7) Migraines (8) Pulmonary atelectasis (9) Vomiting Surgical Problems: (1) Appendectomy (2) Cervical fusion (3) Hx of resection of large bowel Family History FH: cancer FH: diabetes mellitus GRANDMOTHER FH: heart disease FATHER GRANDFATHER FH: stroke GRANDMOTHER Social History Smoking Status: Never Smoker Alcohol Use: none Drug Use: none Marital Status: single Housing Status: lives with family Occupation Status: employed Current/Historical Medications Scheduled Amitriptyline HCl (Amitriptyline HCl), 25 MG PO HS Metoprolol Succ (Toprol Xl) (Toprol-Xl), 50 MG PO QAM Allergies Coded Allergies: Citalopram (Verified Allergy, Unknown, unk, 12/17/16) Sumatriptan (Verified Adverse Reaction, Intermediate, THROAT SWELLING, ) Clonidine (Verified Adverse Reaction, Unknown, vomiting, headache, 12/17/16 ) Headache, chills, vomiting, PT DOES NOT RMEMEBER THIS ALLERGY Zolmitriptan (Verified Adverse Reaction, Unknown, LETHARGY, 12/17/16) Physical Exam Vital Signs Date Time Temp Pulse Resp B/P (MAP) Pulse Ox O2 Delivery O2 Flow Rate FiO2 12/17/16 21:09 82 16 155/108 95 Room Air 12/17/16 19:41 36.8 94 16 159/102 94 Room Air Physical Exam GENERAL: Patient is well appearing and in mild distress. HEAD: No acute trauma, normocephalic atraumatic ENT: Mucous membranes moist, no nasal congestion. EYES: Equal/Reactive Bilaterally, No scleral icterus, Normal ROM NECK: No nuchal rigidity, no meningismus, trachea is midline, full ROM LUNGS: No dyspnea. Clear to auscultation and equal bilaterally. No wheeze, no rhonchi. HEART: Regular rate and rhythm. No murmurs, rubs, gallops appreciated. ABDOMEN: Left lower quadrant tenderness to palpation. Soft, bowel sounds positive, no masses appreciated, no peritonitis. BACK: No midline tenderness, no CVA tenderness EXTREMITIES: Normal motion all extremities, no cyanosis, no edema. NEUROLOGIC: Awake, Alert, Oriented, no acute motor or sensory deficits, no focal weakness, cranial nerves grossly intact. SKIN: No rash, no jaundice, no diaphoresis. Medical Decision & Procedures ER Provider Diagnostic Interpretation: CT results are stated below per my interpretation and the radiologist's interpretation. ABD/PELVIS IV CONTRAST ONLY CT DOSE: 1100.18 mGycm HISTORY: Flank pain LLQ abdominal pain TECHNIQUE: Multiaxial CT images of the abdomen and pelvis were performed following the use of intravenous contrast. A dose lowering technique was utilized adhering to the principles of ALARA. COMPARISON STUDY: 05/10/2016 FINDINGS: Lung bases are clear. Fatty infiltration of liver. Otherwise are normal. Pancreas is uniform. Kidneys are negative for mass or hydronephrosis. Bowel pattern is nonobstructive. There are findings of chronic sigmoid diverticulosis. There is no evidence for acute diverticulitis. No significant abdominal pelvic or inguinal tito pathology. IMPRESSION: 1. Chronic sigmoid diverticulosis. 2. No evidence for acute diverticulitis. 3. Fatty infiltration of liver. The above report was generated using voice recognition software. It may contain grammatical, syntax or spelling errors. Electronically signed by: Gilbert Perry M.D. 12/17/2016 9:05 PM Dictated Date/Time: 12/17/2016 9:02 PM Laboratory Results 12/17/16 20:00 Red Blood Count 4.87, Mean Corpuscular Volume 95.1, Mean Corpuscular Hemoglobin 33.9, Mean Corpuscular Hemoglobin Concent 35.6, Mean Platelet Volume 8.2, Neutrophils (%) (Auto) 55.2, Lymphocytes (%) (Auto) 32.0, Monocytes (%) (Auto) 9.7, Eosinophils (%) (Auto) 2.8, Basophils (%) (Auto) 0.3, Neutrophils # (Auto) 3.35, Lymphocytes # (Auto) 1.94, Monocytes # (Auto) 0.59, Eosinophils # (Auto) 0.17, Basophils # (Auto) 0.02 12/17/16 20:00 Test 12/17/16 20:00 White Blood Count 6.07 K/uL (4.8-10.8) Red Blood Count 4.87 M/uL (4.7-6.1) Hemoglobin 16.5 g/dL (14.0-18.0) Hematocrit 46.3 % (42-52) Mean Corpuscular Volume 95.1 fL (80-100) Mean Corpuscular Hemoglobin 33.9 pg (25-34) Mean Corpuscular Hemoglobin Concent 35.6 g/dl (32-36) Platelet Count 273 K/uL (130-400) Mean Platelet Volume 8.2 fL (7.4-10.4) Neutrophils (%) (Auto) 55.2 % Lymphocytes (%) (Auto) 32.0 % Monocytes (%) (Auto) 9.7 % Eosinophils (%) (Auto) 2.8 % Basophils (%) (Auto) 0.3 % Neutrophils # (Auto) 3.35 K/uL (1.4-6.5) Lymphocytes # (Auto) 1.94 K/uL (1.2-3.4) Monocytes # (Auto) 0.59 K/uL (0.11-0.59) Eosinophils # (Auto) 0.17 K/uL (0-0.5) Basophils # (Auto) 0.02 K/uL (0-0.2) RDW Standard Deviation 41.9 fL (36.4-46.3) RDW Coefficient of Variation 12.2 % (11.5-14.5) Immature Granulocyte % (Auto) 0.0 % Immature Granulocyte # (Auto) 0.00 K/uL (0.00-0.02) Urine Color YELLOW Urine Appearance CLEAR (CLEAR) Urine pH 5.5 (4.5-7.5) Urine Specific [place] 1.023 (1.000-1.030) Urine Protein NEG (NEG) Urine Glucose (UA) NEG (NEG) Urine Ketones NEG (NEG) Urine Occult Blood NEG (NEG) Urine Nitrite NEG (NEG) Urine Bilirubin NEG (NEG) Urine Urobilinogen NEG (NEG) Urine Leukocyte Esterase NEG (NEG) Urine WBC (Auto) 0 /hpf (0-5) Urine RBC (Auto) 0-4 /hpf (0-4) Urine Hyaline Casts (Auto) 0 /lpf (0-5) Urine Epithelial Cells (Auto) 0-5 /lpf (0-5) Urine Bacteria (Auto) NEG (NEG) Anion Gap 8.0 mmol/L (3-11) Est Creatinine Clear Calc Drug Dose 96.0 ml/min Estimated GFR () 90.9 Estimated GFR (Non- 78.4 BUN/Creatinine Ratio 16.3 (10-20) Calcium Level 9.1 mg/dl (8.5-10.1) Total Bilirubin 0.3 mg/dl (0.2-1) Direct Bilirubin < 0.1 mg/dl (0-0.2) Aspartate Amino Transf (AST/SGOT) 53 U/L (15-37) Alanine Aminotransferase (ALT/SGPT) 108 U/L (12-78) Alkaline Phosphatase 69 U/L (45-117) Total Protein 7.7 gm/dl (6.4-8.2) Albumin 3.7 gm/dl (3.4-5.0) Lipase 156 U/L (73-393) Laboratory results as reviewed by me. Medications Administered Medications (Trade) Dose Ordered Sig/Gladis Route Start Time Stop Time Status Last Admin Dose Admin Methylprednisolone Sodium Succinate (Solu-Medrol IV) 125 mg NOW STAT IV 12/17/16 19:52 12/17/16 19:54 DC 12/17/16 20:02 125 MG Ketorolac Tromethamine (Toradol Inj) 30 mg NOW STAT IV 12/17/16 19:52 12/17/16 19:54 DC 12/17/16 20:02 30 MG Diphenhydramine HCl (Benadryl Inj) 50 mg NOW STAT IV 12/17/16 19:52 12/17/16 19:54 DC 12/17/16 20:01 50 MG Prochlorperazine Edisylate (Compazine Inj) 10 mg NOW STAT IV 12/17/16 19:52 12/17/16 19:54 DC 12/17/16 20:02 10 MG Sodium Chloride 2,000 ml @ 999 mls/hr Q2H1M STAT IV 12/17/16 19:52 12/17/16 21:43 DC 12/17/16 20:02 999 MLS/HR ED Course 1945: The patient was evaluated in room A10. A complete history and physical exam was performed. 1951: Ordered NSS 2000 ml @ 999 mls/hr IV, Compazine Inj 10 mg IV, Benadryl Inj 50 mg IV, Toradol Inj 30 mg IV, Solu-Medrol IV 125 mg IV. 2124: Reevaluated the patient and he is resting. Discussed results and discharge instructions: he verbalized understanding and agreement. The patient is ready for discharge. Medical Decision Differential: Headache, Migraine, Cluster Headache, Seizure, Meningitis, Sinusitis, CO exposure, ICH/SAH, Infectious, Tumor, Sinus Thrombosis, Arterial Dissection, amongst other pathologies entertained. 51 yr old male with chronic migraine headaches and many previous visits for the same. No evidence meningitis nor reason to suspect dissection. Consistent with previous migraines. Solumedrol, Toradol, Benadryl, compazine given with improvement in headache. Did have some anxiety post compazine so would avoid this in past though no overt allergic reaction. Mother of patient seemed quite upset I was not giving narcotics. I made clear we should not be using narcotics for headaches nor in further for him. Notes LLQ abdominal pain. Mild TTP. States worse than any previous diverticulitis issues. Diverticulitis requiring surgical intervention in past. No recent colonoscopy (stressed need to discuss this with PCP). CT done given this is new symptoms. Fortunately no acute findings. Stressed PCP follow up. Medication Reconcilliation Current Medication List: was personally reviewed by me Blood Pressure Screening Patient's blood pressure: Elevated blood pressure Blood pressure disposition: Elevated BP felt to be situational Impression Primary Impression: Migraine Additional Impressions: Headache LLQ abdominal pain Scribe Attestation The scribe's documentation has been prepared under my direction and personally reviewed by me in its entirety. I confirm that the note above accurately reflects all work, treatment, procedures, and medical decision making performed by me. Departure Information Dispostion Home / Self-Care Referrals Marlon Godfrey, D.O. (PCP) Patient Instructions ED Headache Migraine, My [facility] Additional Instructions Please follow up with your primary care provider to discuss further work-up and evaluation of abdominal pain. Problem Qualifiers Primary Impression: Migraine Migraine type: unspecified Additional Impressions:
[2016-12-17 20:12] LABS: BASO % 0.3 %; BASO ABS # 0.02 K/uL (0-0.2); COMPLETE YES; EOS % 2.8 %; HEMATOCRIT 46.3 % (42-52); LYMPH ABS # 1.94 K/uL (1.2-3.4); MEAN CELL VOLUME 95.1 fL (80-100); MEAN CORPUSCULAR HEMOGLOBIN 33.9 pg (25-34); MEAN CORPUSCULAR HGB CONC 35.6 g/dl (32-36); MEAN PLATELET VOLUME 8.2 fL (7.4-10.4); MONO % 9.7 %; NEUT % 55.2 %; PLATELET COUNT 273 K/uL (130-400); RED BLOOD COUNT 4.87 M/uL (4.7-6.1); WHITE BLOOD COUNT 6.07 K/uL (4.8-10.8)
[2016-12-17 20:24] LABS: URINE APPEARANCE CLEAR (CLEAR); URINE BILIRUBIN NEG (NEG); URINE COLOR YELLOW; URINE EPITHELIAL CELL AUTO 0-5 /lpf (0-5); URINE NITRITE NEG (NEG); URINE PH 5.5 (4.5-7.5); URINE SPECIFIC GRAVITY 1.023 (1.000-1.030); UROBILINOGEN NEG (NEG); ZZUR CULT IF INDIC CLEAN CATCH NO
[2016-12-17 20:25] LABS: MANUAL MICROSCOPIC REQUIRED? NO; REVIEW REQ? NO
[2016-12-17] MEDS ORDERED: OPTIRAY 320 IV PRN (21:00)
--- NOTE | 2016-12-17 21:07 | DIAGNOSTIC IMAGING REPORT ---
ABD/PELVIS IV CONTRAST ONLY CT DOSE: 1100.18 mGycm HISTORY: Flank pain LLQ abdominal pain TECHNIQUE: Multiaxial CT images of the abdomen and pelvis were performed following the use of intravenous contrast. A dose lowering technique was utilized adhering to the principles of ALARA. COMPARISON STUDY: 05/10/2016 FINDINGS: Lung bases are clear. Fatty infiltration of liver. Otherwise are normal. Pancreas is uniform. Kidneys are negative for mass or hydronephrosis. Bowel pattern is nonobstructive. There are findings of chronic sigmoid diverticulosis. There is no evidence for acute diverticulitis. No significant abdominal pelvic or inguinal tito pathology. IMPRESSION: 1. Chronic sigmoid diverticulosis. 2. No evidence for acute diverticulitis. 3. Fatty infiltration of liver. The above report was generated using voice recognition software. It may contain grammatical, syntax or spelling errors. Electronically signed by: Gilbert Perry M.D. 12/17/2016 9:05 PM Dictated Date/Time: 12/17/2016 9:02 PM
[2016-12-17 21:09] VITALS: BP 155/108; PULSE 82; O2SAT 95
[2016-12-17 21:51] LABS: ALKALINE PHOSPHATASE 69 U/L (45-117); ALT/SGPT 108 U/L (12-78); BLOOD UREA NITROGEN 18 mg/dl (7-18); BUN/CREATININE RATIO 16.3 (10-20); CALCIUM 9.1 mg/dl (8.5-10.1); CARBON DIOXIDE 28 mmol/L (21-32); CHLORIDE 105 mmol/L (98-107); GLUCOSE 149 mg/dl (70-99)
[2016-12-17 22:01] LABS: POTASSIUM 4.2 mmol/L (3.5-5.1); SODIUM 141 mmol/L (136-145)
[2016-12-17 22:06] LABS: AST/SGOT 53 U/L (15-37)
[2016-12-18 11:32] LABS: ISTAT CREATININE 1.1 mg/dl (0.6-1.3); ISTAT HEMOGLOBIN 15.6 g/dl (14.0-18.0); ISTAT IONIZED CALCIUM 1.21 mmol/l (1.12-1.32)
== END 2016-12-17 21:33 | disposition home or self-care (01) ==
LOC: C.EDB 19:31 → C.EDA 21:33
DX: G43.909 Migraine, unspecified, not intractable, without status migrainosus (principal); R10.32 Left lower quadrant pain; I10 Essential (primary) hypertension; Z79.899 Other long term (current) drug therapy; Z87.19 Personal history of other diseases of the digestive system; Z82.3 Family history of stroke; Z82.49 Family history of ischemic heart disease and other diseases of the circulatory system; Z83.3 Family history of diabetes mellitus

== ENCOUNTER 2017-01-24 16:45 | Emergency (ER) | payer OTHER ==
[~2017-01-24] VITALS: Ht 172.7 cm; Wt 105.4 kg
[2017-01-24 16:48] VITALS: TEMP 36.7; Ht 172.7 cm; Wt 105.4 kg
[2017-01-24] MEDS ORDERED: PROMETHAZINE HCL INJ 25 MG/ML 1 ML VIAL IM STA (17:00)
[2017-01-24] MEDS ORDERED: KETOROLAC TROMETHAMINE 60 MG/2 ML VIAL IM STA (17:00)
[2017-01-24] MEDS ORDERED: DiphenhydrAMINE HCL 50 MG/ML VIAL IV STA (17:00)
--- NOTE | 2017-01-24 17:33 | EMERGENCY ROOM VISIT NOTE ---
ED Visit Note First contact with patient: 16:52 CHIEF COMPLAINT: Migraine headache HISTORY OF PRESENT ILLNESS: This 51-year-old male patient presented to the emergency department with a gradual onset of a severe generalized headache that started around 10 AM, roughly 7 hours ago. The patient states the migraine is similar to their typical migraines. There has been associated photophobia, phonophobia, nausea and vomiting. The patient denies fever or chills recently, and there is no weakness or numbness of the extremities. There is no difficulty with speech or vision. No trauma to the head and no neck pain. The pain is severe, constant, and it is slowly increasing in severity. The patient rates the pain as dull and 8/10. The patient has taken nothing for his symptoms. This is not the worst headache of the life and is similar to previous migraines. Previous imaging studies of the brain have been normal. REVIEW OF SYSTEMS: A review of systems was performed with positives and pertinent negatives listed in the history of present illness. All other systems were reviewed and are negative. ALLERGIES: See EMR MEDICATIONS: See EMR PMH: History of chronic migraines SOCIAL HISTORY: Lives locally PHYSICAL EXAM: Vital Signs: Reviewed Nurse's notes, vital signs stable. GENERAL: White male, who appears in pain, but non toxic in appearance and in no acute distress. MENTAL STATUS: Alert, oriented, and coherent. HEENT: Normocephalic. PERRLA. EOMI. Nares patent without nuchal rigidity. Tympanic membranes pearly tran without erythema or effusion bilaterally. Mucous membranes moist. NECK: Supple, no nuchal rigidity, nontender, no lymphadenopathy. HEART: Regular rhythm and normal rate without murmurs, ectopy, gallops, or rubs. LUNGS: Clear to auscultation bilaterally without wheezes, rales or rhonchi. No dullness to percussion. No accessory muscle use. No retractions. SKIN: Normal. NEUROLOGICAL: Pupils are round, equal and react to light. The optic fundi are normal and the discs are flat. The patient moves all extremities well and the gait is normal. EMERGENCY DEPARTMENT COURSE: I examined the patient. The patient is on a no narcotic injection per month treatment plan for their migraines. The patient was given 60 mg IM Toradol, 25 mg IM Benadryl, and 25 mg IM Phenergan for his symptoms. The differential diagnosis includes acute intracranial bleed, meningitis, encephalitis, mass or mass effect, sinusitis, infection, tumor, headache, temporal arteritis and carbon monoxide exposure, and migraine. The patient was discharged home in stable condition with his mother driving. Problem List Medical Problems: (1) Diverticulitis Status: Resolved (2) Diverticulitis Status: Resolved (3) Diverticulosis Status: Chronic (4) Headache Status: Resolved (5) Hypertension Status: Chronic (6) Migraine Status: Resolved (7) Migraines Status: Chronic (8) Pulmonary atelectasis Status: Resolved (9) Vomiting Status: Resolved Surgical Problems: (1) Appendectomy Status: Resolved (2) Cervical fusion Status: Resolved (3) Hx of resection of large bowel Status: Resolved Current/Historical Medications Scheduled Amitriptyline HCl (Amitriptyline HCl), 25 MG PO HS Metoprolol Succ (Toprol Xl) (Toprol-Xl), 50 MG PO QAM Allergies Coded Allergies: Prochlorperazine (Unverified Allergy, Intermediate, ADJATATED, 01/24/17) Citalopram (Verified Allergy, Unknown, unk, 01/24/17) Sumatriptan (Verified Adverse Reaction, Intermediate, THROAT SWELLING, 01/24) Clonidine (Verified Adverse Reaction, Unknown, vomiting, headache, 01/24/17) Headache, chills, vomiting, PT DOES NOT RMEMEBER THIS ALLERGY Zolmitriptan (Verified Adverse Reaction, Unknown, LETHARGY, 01/24/17) Vital Signs Date Time Temp Pulse Resp B/P (MAP) Pulse Ox O2 Delivery O2 Flow Rate FiO2 01/24/17 16:48 36.7 87 18 137/82 94 Room Air Medications Administered Medications (Trade) Dose Ordered Sig/Gladis Route Start Time Stop Time Status Last Admin Dose Admin Diphenhydramine HCl (Benadryl Inj) 50 mg NOW STAT IV 01/24/17 17:00 01/24/17 17:02 DC 01/24/17 17:20 50 MG Promethazine HCl (Phenergan Inj) 25 mg NOW STAT IM 01/24/17 17:00 01/24/17 17:02 DC 01/24/17 17:21 25 MG Ketorolac Tromethamine (Toradol Inj) 60 mg NOW STAT IM 01/24/17 17:00 01/24/17 17:02 DC 01/24/17 17:21 60 MG Departure Information Impression Primary Impression: Headache Dispostion Home / Self-Care Condition GOOD Referrals Marlon Godfrey D.OCristin (PCP) Forms HOME CARE DOCUMENTATION FORM, IMPORTANT VISIT INFORMATION Patient Instructions My [facility] Additional Instructions You were seen and evaluated today on an emergency basis only. This is not a substitute for, or an effort to provide, complete comprehensive medical care. It is not possible to recognize and treat all injuries or illnesses in a single emergency department visit. For this reason it is recommended that you followup with your primary care physician or neurologist this week for ongoing care and evaluation. DO NOT drive, drink alcohol, operate machinery, or perform dangerous activities today. You were given medications in the ER that can affect your ability to safely function or operate a vehicle. Rest today in a quiet, peaceful, dark environment and get a full 8-10 hrs of sleep tonight. Avoid loud noises, smoke/smoking, alcohol, bright lights, stress, or physical exertion today to minimize the chance the headache may return. Continue current medications. Ibuprofen(Motrin, Advil) may be used for fever or pain. Use 600mg every six hours as needed. Take with food. Avoid using more than 2400mg in a 24 hour period. Do not use 2400mg per day for more than three consecutive days without physician direction. Prolonged inappropriate use can lead to stomach upset or ulcers. (AND/OR) Acetaminophen(Tylenol) may be used for fever or pain. Use 1000mg every six hours as needed. Avoid using more than 4000mg in a 24 hour period. Return to the ER for passing out, worsening headache, vision problems, neck stiffness/pain, fevers, vomiting, worsening of your condition, or as needed.
[2017-01-24 18:06] VITALS: BP 128/95; PULSE 78; O2SAT 99
== END 2017-01-24 18:09 | disposition home or self-care (01) ==
LOC: C.EDB 16:45 → C.EDA 18:09
DX: R51 Headache (principal); I10 Essential (primary) hypertension; K57.90 Diverticulosis of intestine, part unspecified, without perforation or abscess without bleeding; K57.92 Diverticulitis of intestine, part unspecified, without perforation or abscess without bleeding; Z98.1 Arthrodesis status; Z98.890 Other specified postprocedural states; Z79.899 Other long term (current) drug therapy; Z88.8 Allergy status to other drugs, medicaments and biological substances

== ENCOUNTER 2017-02-03 18:52 | Emergency (ER) | payer OTHER ==
[~2017-02-03] VITALS: Ht 172.7 cm; Wt 103.7 kg
[2017-02-03 18:54] VITALS: TEMP 36.7; Ht 172.7 cm; Wt 103.7 kg
--- NOTE | 2017-02-03 19:01 | EMERGENCY ROOM VISIT NOTE ---
ED Visit Note First contact with patient: 18:57 CHIEF COMPLAINT: Severe headache today HISTORY OF PRESENT ILLNESS: This patient had gradual onset of a severe, generalized headache around 11am today. There has been associated nausea and vomiting, photophobia. The patient states this is just like his previous migraines, which he gets frequently. The patient denies fever or chills recently, and there is no weakness or numbness of the extremities. There is no difficulty with speech or vision. No trauma to the head and no neck pain. The pain is severe, constant, and it is slowly increasing in severity. This is not the worst headache of the life and is similar to previous migraines. Previous imaging studies of the brain (CT scans and MRI) have been normal. REVIEW OF SYSTEMS: Head: Normocephalic, atraumatic. Ears: No pain or change in hearing. Neck: No pain, stiffness, or swelling. Neurological: No changes in mental status, vertigo, focal weakness, numbness. Cardiac: No chest pain, diaphoresis, dyspnea on exertion, orthopnea, pedal edema, or palpitations. Respiratory: No cough, change in sputum, wheezes, hemoptysis, shortness of breath, or stridor. Gastrointestinal: No abdominal pain, blood in stools, diarrhea, loss of appetite, nausea, or vomiting. Skin: No rash, new lesions, or masses. General: No fever or chills, fatigue, loss of appetite, or significant recent weight gain or loss. PMH: The patient is healthy; there is no significant medical or surgical history. SOCIAL HISTORY: Patient lives at home. PHYSICAL EXAM: Vital Signs: Reviewed Nurse's notes. MENTAL STATUS: Alert, oriented, and coherent. In great distress from the headache. NECK: Supple, nontender, no lymphadenopathy. HEART: Regular rhythm and normal rate without murmurs, ectopy, gallops, or rubs. SKIN: Normal. NEUROLOGICAL: Pupils are round, equal and react to light. The optic fundi are normal and the discs are flat. EOMs are full and there is no nystagmus. The patient moves all extremities well and the gait is normal. Normal strength, normal sensation, normal speech, normal coordination. No facial droop, no pronator drift. EMERGENCY DEPARTMENT COURSE: I examined the patient. No neurologic deficits on exam, and patient states this is like his previous migraines. No red flag symptoms. The patient was given IM Toradol 60mg, IM Phenergan 25mg, and IM Benadryl 25mg, which he has had in the past and states has worked well for him. On reassessment, patient reports significant relief of the pain. He was initially hypertensive on arrival, this is resolved after treatment of his migraine. He is not currently followed by Neurologist for his migraines, he states he has seen pain management for this. I encouraged him to follow up with Pain Management and his PCP regarding his ongoing migraines. The patient was discharged home in stable condition and ambulatory. Problem List Medical Problems: (1) Diverticulitis Status: Resolved (2) Diverticulitis Status: Resolved (3) Diverticulosis Status: Chronic (4) Headache Status: Resolved (5) Hypertension Status: Chronic (6) Migraine Status: Resolved (7) Migraines Status: Chronic (8) Pulmonary atelectasis Status: Resolved (9) Vomiting Status: Resolved Surgical Problems: (1) Appendectomy Status: Resolved (2) Cervical fusion Status: Resolved (3) Hx of resection of large bowel Status: Resolved Current/Historical Medications Scheduled Amitriptyline HCl (Amitriptyline HCl), 25 MG PO HS Metoprolol Succ (Toprol Xl) (Toprol-Xl), 50 MG PO QAM Allergies Coded Allergies: Prochlorperazine (Unverified Allergy, Intermediate, ADJATATED, 01/24/17) Citalopram (Verified Allergy, Unknown, unk, 01/24/17) Sumatriptan (Verified Adverse Reaction, Intermediate, THROAT SWELLING, 01/24) Clonidine (Verified Adverse Reaction, Unknown, vomiting, headache, 01/24/17) Headache, chills, vomiting, PT DOES NOT RMEMEBER THIS ALLERGY Zolmitriptan (Verified Adverse Reaction, Unknown, LETHARGY, 01/24/17) Vital Signs Date Time Temp Pulse Resp B/P (MAP) Pulse Ox O2 Delivery O2 Flow Rate FiO2 02/03/17 20:18 72 16 114/76 98 02/03/17 18:54 36.7 95 18 160/109 93 Room Air Medications Administered Medications (Trade) Dose Ordered Sig/Gladis Route Start Time Stop Time Status Last Admin Dose Admin Ketorolac Tromethamine (Toradol Inj) 60 mg NOW STAT IM 02/03/17 19:10 02/03/17 19:12 DC 02/03/17 19:10 60 MG Diphenhydramine HCl (Benadryl Inj) 25 mg NOW STAT IM 02/03/17 19:10 02/03/17 19:12 DC 02/03/17 19:10 25 MG Promethazine HCl (Phenergan Inj) 25 mg NOW STAT IM 02/03/17 19:10 02/03/17 19:12 DC 02/03/17 19:10 25 MG Departure Information Impression Primary Impression: Migraine Dispostion Home / Self-Care Condition GOOD Referrals Marlon Godfrey D.O. (PCP) Patient Instructions ED Headache Migraine, My [facility] Additional Instructions DO NOT drive, drink alcohol, operate machinery, or perform dangerous activities today. You were given medications in the ER that can affect your ability to safely function or operate a vehicle. Rest today in a quiet, peaceful, dark environment and get a full 8-10 hrs of sleep tonight. Avoid loud noises, smoke/smoking, alcohol, bright lights, stress, or physical exertion today to minimize the chance the headache may return. Continue current medications as prescribed. Ibuprofen(Motrin, Advil) may be used for fever or pain. Use 600mg every 6-8 hours as needed. Take with food. Avoid using more than 2400mg in a 24 hour period. Do not use 2400mg per day for more than three consecutive days without physician direction. Prolonged inappropriate use can lead to stomach upset or ulcers. (AND/OR) Acetaminophen(Tylenol) may be used for fever or pain. Use 1000mg every 8 hours as needed. Avoid using more than 3000 mg in a 24 hour period. Return to the ER for passing out, worsening headache, vision problems, neck stiffness/pain, fevers, vomiting, worsening of your condition, or as needed. Follow up with your primary physician in 2-3 days for a recheck of your current condition. You should also follow up with her hand touch up painter to further address your chronic, ongoing migraines. Problem Qualifiers Primary Impression: Migraine Migraine type: unspecified Status migrainosus presence: without status migrainosus Intractability: not intractable Qualified Codes: G43.909 - Migraine, unspecified, not intractable, without status migrainosus
[2017-02-03] MEDS ORDERED: DiphenhydrAMINE HCL 50 MG/ML VIAL IM STA (19:10)
[2017-02-03] MEDS ORDERED: PROMETHAZINE HCL INJ 25 MG/ML 1 ML VIAL IM STA (19:10)
[2017-02-03] MEDS ORDERED: KETOROLAC TROMETHAMINE 60 MG/2 ML VIAL IM STA (19:10)
[2017-02-03] MEDS ORDERED: METO50TA7 PO (20:17)
[2017-02-03 20:18] VITALS: BP 114/76; PULSE 72; O2SAT 98
[2017-02-03] MEDS ORDERED: AMT25 PO (20:20)
== END 2017-02-03 20:19 | disposition home or self-care (01) ==
LOC: C.EDB 18:53 → C.EDD 20:19
DX: G43.909 Migraine, unspecified, not intractable, without status migrainosus (principal); Z98.1 Arthrodesis status; Z90.49 Acquired absence of other specified parts of digestive tract; Z90.89 Acquired absence of other organs; I10 Essential (primary) hypertension; Z79.899 Other long term (current) drug therapy

== ENCOUNTER 2017-02-17 18:02 | Emergency (ER) | payer OTHER ==
[~2017-02-17] VITALS: Ht 172.7 cm; Wt 104.0 kg
[~2017-02-17 18:02] MED LIST changes: +AMT25 PO; -CYCL10TA6 PO; +METO50TA7 PO
[2017-02-17 18:04] VITALS: TEMP 36.6; Ht 172.7 cm; Wt 104.0 kg
[2017-02-17] MEDS ORDERED: PROMETHAZINE HCL INJ 25 MG/ML 1 ML VIAL IM STA (18:17)
[2017-02-17] MEDS ORDERED: DiphenhydrAMINE HCL 50 MG/ML VIAL IM STA (18:17)
[2017-02-17] MEDS ORDERED: KETOROLAC TROMETHAMINE 60 MG/2 ML VIAL IM STA (18:17)
--- NOTE | 2017-02-17 18:23 | EMERGENCY ROOM VISIT NOTE ---
History Report prepared by Santos: Kar Lopez Under the Supervision of: Dr. Red Galvan M.D. First contact with patient: 18:07 Chief Complaint: HEADACHE Stated Complaint: BAD MIGRAINE History of Present Illness The patient is a 51 year old male who presents to the Emergency Room with complaints of a constant headache beginning yesterday. He localizes the pain to the left side of his head. The patient describes the pain as an "ache". He has a history of migraines and states that his headache feels like a typical migraine. He denies any fevers, chills, SOB, or chest pain. The patient states that he has had some abdominal pain, but this is not new. Source of History: patient Onset: Yesterday Position: head (left side) Quality: ache Timing: constant Associated Symptoms: No fevers, No chills, No chest pain, No SOB Review of Systems See HPI for pertinent positives & negatives. A total of 10 systems reviewed and were otherwise negative. Past Medical & Surgical Medical Problems: (1) Diverticulitis (2) Diverticulitis (3) Diverticulosis (4) Headache (5) Hypertension (6) Migraine (7) Migraines (8) Pulmonary atelectasis (9) Vomiting Surgical Problems: (1) Appendectomy (2) Cervical fusion (3) Hx of resection of large bowel Old medical records were reviewed. Nurse's notes were reviewed and I agree with. Family History FH: cancer FH: diabetes mellitus GRANDMOTHER FH: heart disease FATHER GRANDFATHER FH: stroke GRANDMOTHER Social History Smoking Status: Never Smoker Alcohol Use: none Drug Use: none Marital Status: single Housing Status: lives with family Occupation Status: employed Current/Historical Medications Scheduled Amitriptyline HCl (Amitriptyline HCl), 25 MG PO HS Metoprolol Succ (Toprol Xl) (Toprol-Xl), 50 MG PO QAM Allergies Coded Allergies: Prochlorperazine (Unverified Allergy, Intermediate, ADJATATED, 02/17/17) Citalopram (Verified Allergy, Unknown, unk, 02/17/17) Sumatriptan (Verified Adverse Reaction, Intermediate, THROAT SWELLING, ) Clonidine (Verified Adverse Reaction, Unknown, vomiting, headache, 02/17/17 ) Headache, chills, vomiting, PT DOES NOT RMEMEBER THIS ALLERGY Zolmitriptan (Verified Adverse Reaction, Unknown, LETHARGY, 02/17/17) Physical Exam Vital Signs Date Time Temp Pulse Resp B/P (MAP) Pulse Ox O2 Delivery O2 Flow Rate FiO2 02/17/17 18:04 36.6 74 16 165/106 96 Room Air Physical Exam General: Well developed well nourished in no acute distress, breathing comfortably on room air. Normal speech HEENT: Normal cephalic atraumatic. Pupils are equal round and reactive to light. Extraocular movements are intact. Oropharynx is pink with moist mucous membranes. No swelling of the mouth lips or tongue. Neck: Supple with a midline trachea. No meningeal signs or stiffness, no JVD or bruits. No Stridor. Chest: Clear to auscultation bilaterally. No wheezes or rhonchi. No increased work of breathing. Heart: regular rate and rhythm. Abdomen: Soft nontender, nondistended without rebound guarding or rigidity. Extremities: No cyanosis clubbing or edema. No calf tenderness or assymetry Spine/Back. Non tender to palpation. No CVA tenderness Skin: Good turgor without rashes. Neurologic exam: Cranial nerves two through 12 are intact. Motor and sensation are intact and symmetrical throughout. Finger to nose intact. Medical Decision & Procedures ED Course 1809: Past medical records reviewed. The patient was evaluated in room C5, and a complete history and physical examination were performed. 1816: Ordered Benadryl Inj 25 mg IM, Phenergan Inj 25 mg IM, Toradol Inj 60 mg IM. 0: Upon reevaluation, the patient is resting comfortably. I discussed the results and treatment plan with him. He verbalized agreement of the treatment plan. The patient was discharged home. Medical Decision Differentials include, but are not limited to; migraine, ICH, CVA, aneurysm, and tension headache. This patient comes in as described above. He was placed in room C5. He is here for treatment and evaluation of a headache which is consistent with his previous migraines. He has been her multiple times in the past for this and has a cocktail that typically works for him. He has no fever or chills. He has nothing to suggest meningitis or encephalitis or CVA. He has nothing to suggest subarachnoid hemorrhage. His friend is at the bedside and driving. He was given Toradol 60 mg IM, Phenergan 25 mg IM, Benadryl 25 mg IM which are typical dosages for him. He will be discharged home. He is encouraged to follow-up with his regular doctor return to ER if: Worsening of symptoms, any new problems or concerns. Medication Reconcilliation Current Medication List: was personally reviewed by me Blood Pressure Screening Patient's blood pressure: Elevated blood pressure Blood pressure disposition: Elevated BP felt to be situational Impression Primary Impression: Migraine Scribe Attestation The scribe's documentation has been prepared under my direction and personally reviewed by me in its entirety. I confirm that the note above accurately reflects all work, treatment, procedures, and medical decision making performed by me. Departure Information Dispostion Home / Self-Care Referrals Marlon Godfrey, D.O. (PCP) Forms HOME CARE DOCUMENTATION FORM, IMPORTANT VISIT INFORMATION Patient Instructions My [facility] Additional Instructions Rest. Return if: headache different than typical migraine, fever or chills, numbness orweakness, any new problems or concerns Follow-up with your doctor this week for recheck
[2017-02-17 18:51] VITALS: BP 159/98; PULSE 78; O2SAT 99
== END 2017-02-17 18:50 | disposition home or self-care (01) ==
LOC: C.EDB 18:03 → C.EDC 18:50
DX: G43.909 Migraine, unspecified, not intractable, without status migrainosus (principal); K57.90 Diverticulosis of intestine, part unspecified, without perforation or abscess without bleeding; I10 Essential (primary) hypertension; Z83.3 Family history of diabetes mellitus; Z82.3 Family history of stroke

== ENCOUNTER 2017-02-24 17:53 | Emergency (ER) | payer OTHER ==
[~2017-02-24] VITALS: Ht 172.7 cm; Wt 104.3 kg
[2017-02-24 18:01] VITALS: TEMP 36.9; Ht 172.7 cm; Wt 104.3 kg
--- NOTE | 2017-02-24 18:26 | EMERGENCY ROOM VISIT NOTE ---
History First contact with patient: 18:05 Chief Complaint: HEADACHE Stated Complaint: BAD MIGRAINE History of Present Illness The patient is a 51 year old male who presents to the Emergency Room with complaints of a migraine headache on the left side of his head since this morning. The patient has chronic migraines. He says that this is his typical headache. His other symptoms are photophobia and nausea. There has been no actual vomiting. No recent illnesses. No fever or chills. Denies neck pain. Has tried Aleve at home with no relief. Review of Systems 10 system review performed and negative unless noted in HPI or below Past Medical/Surgical History Medical Problems: (1) Diverticulitis (2) Diverticulitis (3) Diverticulosis (4) Headache (5) Hypertension (6) Migraine (7) Migraines (8) Pulmonary atelectasis (9) Vomiting Surgical Problems: (1) Appendectomy (2) Cervical fusion (3) Hx of resection of large bowel Family History FH: cancer FH: diabetes mellitus GRANDMOTHER FH: heart disease FATHER GRANDFATHER FH: stroke GRANDMOTHER Social History Smoking Status: Never Smoker Alcohol Use: none Drug Use: none Marital Status: single Housing Status: lives with family Occupation Status: employed Current/Historical Medications Scheduled Amitriptyline HCl (Amitriptyline HCl), 25 MG PO HS Metoprolol Succ (Toprol Xl) (Toprol-Xl), 50 MG PO QAM Physical Exam Vital Signs Date Time Temp Pulse Resp B/P (MAP) Pulse Ox O2 Delivery O2 Flow Rate FiO2 02/24/17 18:01 36.9 94 16 135/94 94 Room Air Physical Exam VITALS: Vitals are noted on the nurse's note and reviewed by myself. Vital signs stable. GENERAL: 51-year-old male, in no acute distress, nondiaphoretic, well-developed well-nourished. SKIN: The skin was without rashes, erythema, edema, or bruising. HEAD: Normocephalic atraumatic. EARS: External auditory canals clear, tympanic membranes pearly tran without erythema or effusion bilaterally. EYES: Pupils equal round and reactive to light and accommodation. Conjunctivae without injection, sclerae without icterus. Extraocular movements intact. NOSE: Patent, turbinates without inflammation or discharge. No sinus tenderness. MOUTH: Mucous membranes moist. Tonsils are not enlarged. Pharynx without erythema or exudate. Uvula midline. Airway patent. Tongue does not deviate. NECK: Supple without nuchal rigidity. No lymphadenopathy. Cervical spine is nontender. No JVD. HEART: Regular rate and rhythm without murmurs gallops or rubs. LUNGS: Clear to auscultation bilaterally without wheezes, rales or rhonchi. No accessory muscle use. MUSCULOSKELETAL: No muscle atrophy, erythema, or edema noted. Strength 5/5 throughout. NEURO: Patient was alert and oriented to person place and time. Cerebellar function intact. Normal sensation to touch. No focal neurological deficits. Medical Decision & Procedures Medications Administered Medications (Trade) Dose Ordered Sig/Gladis Route Start Time Stop Time Status Last Admin Dose Admin Diphenhydramine HCl (Benadryl Inj) 25 mg ONE STAT IM 02/24/17 18:27 02/24/17 18:28 DC 02/24/17 18:39 25 MG Ketorolac Tromethamine (Toradol Inj) 60 mg ONE ONCE IM 02/24/17 18:30 02/24/17 18:31 DC 02/24/17 18:39 60 MG Promethazine HCl (Phenergan Inj) 25 mg NOW STAT IM 02/24/17 18:27 02/24/17 18:28 DC 02/24/17 18:39 25 MG ED Course The patient was seen and examined He was given his typical regimen of Toradol 60 mg, Phenergan 25 mg and Benadryl 25 mg IM. I discussed treatment options with the patient. He voiced understanding. Discharge instructions were reviewed, and the patient was discharged in good condition Medical Decision Differential includes: Acute intracranial bleed, trauma, meningitis, encephalitis, increased intracranial pressure, mass or mass effect, facial or dental infection, temporal arteritis, CVA, TIA, acute hypertensive emergency, sinusitis, carbon monoxide exposure. This patient is a 51-year-old male that presents emergency department with his typical migraine headache. He is well-known to the emergency department. He is nontoxic in appearance. No recent illnesses. His neurologic exam is intact. It did not find a workup necessary. He was given his usual regimen of IM injections. I discussed further treatment options with the patient. I suggested triptan's. He is allergic. He is already taking amitriptyline. I told him we could try a short course of Topamax at home. He was in agreement with this plan. Discharge instruction reviewed, and he was discharged in good condition This chart was completed in part utilizing [employer] Speech Voice Recognition software. Attempts were made to minimize the grammatical errors, random word insertions, pronoun errors and incomplete sentences. Any formal questions or concerns about the content, text or information contained within the body of this dictation should be directly addressed to the provider for clarification. Impression Primary Impression: Migraine Departure Information Dispostion Home / Self-Care Condition GOOD Prescriptions Topiramate (TOPAMAX) 25 Mg Tab 25 MG PO HS for 14 Days, #14 TAB Prov: Shanel Perez PA-C 02/24/17 Referrals Marlon Godfrey, D.OCristin (PCP) Patient Instructions ED Headache Migraine, My [facility] Additional Instructions You have been evaluated in the emergency department for your typical migraine headache. You have been prescribed Topamax 25 mg. Please take 1 tablet before bed. Please stay well hydrated and rest for the rest of the night. Follow up with your primary care physician next week for recheck Return to the emergency department with any new or worsening symptoms
[2017-02-24] MEDS ORDERED: PROMETHAZINE HCL INJ 25 MG/ML 1 ML VIAL IM STA (18:27)
[2017-02-24] MEDS ORDERED: DiphenhydrAMINE HCL 50 MG/ML VIAL IM STA (18:27)
[2017-02-24] MEDS ORDERED: KETOROLAC TROMETHAMINE 60 MG/2 ML VIAL IM ONE (18:30)
[2017-02-24] MEDS ORDERED: TOPI25TA10 PO (18:47)
[2017-02-24 19:07] VITALS: BP 142/98; PULSE 91; O2SAT 94
== END 2017-02-24 19:07 | disposition home or self-care (01) ==
LOC: C.EDB 17:54 → C.EDD 19:07
DX: G43.909 Migraine, unspecified, not intractable, without status migrainosus (principal); R11.0 Nausea; I10 Essential (primary) hypertension

== ENCOUNTER 2017-09-24 16:14 | Emergency (ER) | payer BC ==
[~2017-09-24] VITALS: Ht 172.7 cm; Wt 104.3 kg
[~2017-09-24 16:14] MED LIST changes: -METO50TA7 PO; +METO50TA8 PO
[2017-09-24 16:28] VITALS: TEMP 36.8; Ht 172.7 cm; Wt 104.3 kg
[2017-09-24] MEDS ORDERED: DiphenhydrAMINE HCL 50 MG/ML VIAL IM STA (17:24)
[2017-09-24] MEDS ORDERED: METOCLOPRAMIDE HCL INJ 5 MG/ML 2 ML VIAL IM STA (17:24)
[2017-09-24] MEDS ORDERED: KETOROLAC TROMETHAMINE 60 MG/2 ML VIAL IM STA (17:24)
--- NOTE | 2017-09-24 17:26 | EMERGENCY ROOM VISIT NOTE ---
History Report prepared by Santos: Travis Calix Under the Supervision of: Dr. Salazar Prather M.D. First contact with patient: 17:13 Chief Complaint: HEADACHE Stated Complaint: MIGRAINE History of Present Illness The patient is a 52 year old male who presents to the Emergency Room with complaints of a constant headache beginning yesterday morning. The patient states he has a history of migraines in the front of his head and eyes. He reports this is a typical migraine, and light sensitive makes his symptoms worse. He also reports he is nauseous. The patient notes his migraines subsided in December, and he has only had two since. He states he was on amitriptyline for his migraines. The patient reports he is still on it because it helps him sleep. He notes he had carpal tunnel surgery recently and had his stitches removed earlier today. The patient denies fevers, chills, cough, congestion, and trouble eating or drinking. Source of History: patient Onset: yesterday morning Position: head Quality: ache Modifying Factors (Worsening): other (light) Associated Symptoms: + nausea, No fevers, No chills, No cough Note: Toni: trouble eating or drinking, congestion Review of Systems See HPI for pertinent positives and negatives. A total of ten systems were reviewed and were otherwise negative. Past Medical & Surgical Medical Problems: (1) Diverticulitis (2) Diverticulitis (3) Diverticulosis (4) Headache (5) Hypertension (6) Migraine (7) Migraines (8) Pulmonary atelectasis (9) Vomiting Surgical Problems: (1) Appendectomy (2) Cervical fusion (3) Hx of resection of large bowel Family History FH: cancer FH: diabetes mellitus GRANDMOTHER FH: heart disease FATHER GRANDFATHER FH: stroke GRANDMOTHER Social History Smoking Status: Never Smoker Alcohol Use: none Drug Use: none Marital Status: single Housing Status: lives with family Occupation Status: employed Current/Historical Medications Scheduled Amitriptyline HCl (Amitriptyline HCl), 25 MG PO HS Metoprolol Succ (Toprol Xl) (Toprol-Xl), 50 MG PO QAM Allergies Coded Allergies: Prochlorperazine (Unverified Allergy, Intermediate, ADJATATED, 09/24/17) Citalopram (Verified Allergy, Unknown, unk, 09/24/17) Sumatriptan (Verified Adverse Reaction, Intermediate, THROAT SWELLING, 09/24) Clonidine (Verified Adverse Reaction, Unknown, vomiting, headache, 09/24/17) Headache, chills, vomiting, PT DOES NOT RMEMEBER THIS ALLERGY Zolmitriptan (Verified Adverse Reaction, Unknown, LETHARGY, 09/24/17) Physical Exam Vital Signs Date Time Temp Pulse Resp B/P (MAP) Pulse Ox O2 Delivery O2 Flow Rate FiO2 09/24/17 17:42 76 18 149/98 99 Room Air 09/24/17 16:28 36.8 82 20 159/118 93 Physical Exam GENERAL: Awake, alert, fatigued and uncomfortable-appearing, in no distress HENT: Normocephalic, atraumatic. Oropharynx unremarkable. EYES: Normal conjunctiva. Sclera non-icteric. NECK: Supple. No nuchal rigidity. FROM. No JVD. RESPIRATORY: Clear to auscultation. CARDIAC: Regular rate, normal rhythm. Extremities warm and well perfused. Pulses equal. ABDOMEN: Soft, non-distended. No tenderness to palpation. No rebound or guarding. No masses. RECTAL: Deferred. MUSCULOSKELETAL: Chest examination reveals no tenderness. The back is symmetrical on inspection without obvious abnormality. There is no CVA tenderness to palpation. No joint edema. LOWER EXTREMITIES: Calves are equal size bilaterally and non-tender. No edema. No discoloration. NEURO: Normal sensorium. No sensory or motor deficits noted. normal cerebellar function with [id number], alternating palms, [id number] SKIN: No rash or jaundice noted. Medical Decision & Procedures Medications Administered Medications (Trade) Dose Ordered Sig/Gladis Route Start Time Stop Time Status Last Admin Dose Admin Metoclopramide HCl (Reglan Inj) 10 mg NOW STAT IM 09/24/17 17:24 09/24/17 17:25 DC 09/24/17 17:37 10 MG Diphenhydramine HCl (Benadryl Inj) 25 mg NOW STAT IM 09/24/17 17:24 09/24/17 17:25 DC 09/24/17 17:37 25 MG Ketorolac Tromethamine (Toradol Inj) 30 mg NOW STAT IM 09/24/17 17:24 09/24/17 17:25 DC 09/24/17 17:37 30 MG ED Course 1721: The patient was evaluated in room B09. A complete history and physical exam was performed. I discussed physical exam findings and the treatment plan. The patient agreed with the treatment plan and discharge instructions. He is ready for discharge when he receives his medication Medical Decision I reviewed the patient's past medical history, medications, and the nursing notes as described above. Differential diagnosis: Etiologies such as migraine headache, meningitis, sinusitis, CO exposure, ICH, SAH, infection, tumor, headache, sinus thrombosis, arterial dissection, as well as others were entertained. The patient is a 52 yo gentleman with a pmhx of migraines who presents to the emergency department with his typical migraine evolving over the past 2 days per HPI. On arrival the patient is uncomfortable but in NAD, AFVSS. Neuro intact including normal cerebellar function with [id number] and heel-to- pulido. Patient offered IV migraine cocktail however preferred IM medication. Thus , given IM Reglan, Benadryl, Toradol. Patient feeling improved and requesting discharge to RN. However, I was tending to a critical patient and patient no longer wanted to wait and left before written instructions could be written/ given. However, plan for follow-up had already been reviewed with patient and patient was agreeable. Medication Reconcilliation Current Medication List: was personally reviewed by me Blood Pressure Screening Patient's blood pressure: Elevated blood pressure Blood pressure disposition: Elevated BP felt to be situational Impression Primary Impression: Migraine Scribe Attestation The scribe's documentation has been prepared under my direction and personally reviewed by me in its entirety. I confirm that the note above accurately reflects all work, treatment, procedures, and medical decision making performed by me. Departure Information Dispostion Home / Self-Care Referrals Marlon Godfrey D.O. (PCP) Forms HOME CARE DOCUMENTATION FORM, IMPORTANT VISIT INFORMATION Patient Instructions My [facility]
[2017-09-24 17:42] VITALS: BP 149/98; PULSE 76; O2SAT 99
[2017-09-25] MEDS ORDERED: LIDOCAINE HCL 2% 2 ML VIAL (20MG/ML) ONE (11:59)
[2017-09-25] MEDS ORDERED: PROPOFOL IV EMULSION 10 MG/ML 20 ML VIAL ONE (11:59)
== END 2017-09-24 18:55 | disposition home or self-care (01) ==
LOC: C.EDB 16:14
DX: G43.909 Migraine, unspecified, not intractable, without status migrainosus (principal); R11.0 Nausea; I10 Essential (primary) hypertension; Z79.899 Other long term (current) drug therapy; Z88.8 Allergy status to other drugs, medicaments and biological substances; Z82.49 Family history of ischemic heart disease and other diseases of the circulatory system

== ENCOUNTER 2018-01-08 19:19 | Emergency (ER) | payer BC, OTHER ==
[~2018-01-08] VITALS: Ht 172.7 cm; Wt 102.0 kg
[~2018-01-08 19:19] MED LIST changes: -AMT25 PO
[2018-01-08 19:22] VITALS: TEMP 37.1; Ht 172.7 cm; Wt 102.0 kg
[2018-01-08] MEDS ORDERED: SODIUM CHLORIDE 0.9% 1000ML 1,000 ML IV STA (19:39)
[2018-01-08] MEDS ORDERED: FAMOTIDINE 20MG/5ML IV PUSH IV STA (19:39)
[2018-01-08] MEDS ORDERED: HYDROmorphone INJ 1 MG/ML SYR IV STA (19:39)
[2018-01-08] MEDS ORDERED: ONDANSETRON INJ 2 MG/ML 2 ML VIAL IV STA (19:39)
[2018-01-08] MEDS ORDERED: PANTOprazole INJ 40 MG in SYRINGE 0 ML IV ONE (19:45)
[2018-01-08] MEDS ORDERED: OPTIRAY 320 IV PRN (19:45)
--- NOTE | 2018-01-08 19:46 | EMERGENCY ROOM VISIT NOTE ---
History Report prepared by Santos: Magdalena Fernandez Under the Supervision of: Dr. Pedro Pablo Knowles M.D. First contact with patient: 19:26 Chief Complaint: ABDOMINAL PAIN Stated Complaint: STOMACH PAIN History of Present Illness The patient is a 52 year old male who presents to the Emergency Room with complaints of constant abdominal pain that began last night. The patient states that he had diarrhea and was vomiting. The patient states that he no longer is having diarrhea, but has been vomiting all day and has been unable to keep anything down. The patient states that he has noticed blood after his bowel movements when wiping. He states that he had some blood after his bowel movements even before the abdominal pain started. He denies eating anything out of the normal, fevers, rash, pain in his chest, and pain in his back. The patient states that he is constantly nauseous and when he burps he feels like he is going to vomit and states it feels like heartburn. The patient denies having symptoms like these before. The patient states that he has a history of hernia, appendectomy, ulcers, diverticulitis, and had part of his intestine removed from the diverticulitis years ago. He states that no one else in his family is sick. The patient states that he has moderate alcohol use. Source of History: patient Onset: last night Position: abdomen Quality: other (pain) Timing: constant Associated Symptoms: + nausea, + vomiting, + diarrhea, No fevers, No chest pain, No back pain, No rash Review of Systems See HPI for pertinent positives and negatives. A total of ten systems were reviewed and were otherwise negative. Past Medical & Surgical Medical Problems: (1) Diverticulitis (2) Diverticulitis (3) Diverticulosis (4) Headache (5) Hypertension (6) Migraine (7) Migraines (8) Pulmonary atelectasis (9) Vomiting Surgical Problems: (1) Appendectomy (2) Cervical fusion (3) Hx of resection of large bowel Family History FH: cancer FH: diabetes mellitus GRANDMOTHER FH: heart disease FATHER GRANDFATHER FH: stroke GRANDMOTHER Social History Smoking Status: Never Smoker Alcohol Use: none Drug Use: none Marital Status: single Housing Status: lives with family Occupation Status: employed Current/Historical Medications Scheduled Amitriptyline HCl (Amitriptyline HCl), 25 MG PO HS Famotidine (Pepcid), 20 MG PO BID Lisinopril (Prinivil), 10 MG PO DAILY Ondasetron Odt (Zofran Odt), 4 MG SL Q6H Scheduled PRN Ibuprofen (Motrin), 600 MG PO TID PRN for Pain Oxycodone Ir (Roxicodone Ir), 1 TAB PO Q6 PRN for Pain Allergies Coded Allergies: Prochlorperazine (Unverified Allergy, Intermediate, ADJATATED, 09/24/17) Citalopram (Verified Allergy, Unknown, unk, 09/24/17) Sumatriptan (Verified Adverse Reaction, Intermediate, THROAT SWELLING, 09/24) Clonidine (Verified Adverse Reaction, Unknown, vomiting, headache, 09/24/17) Headache, chills, vomiting, PT DOES NOT RMEMEBER THIS ALLERGY Zolmitriptan (Verified Adverse Reaction, Unknown, LETHARGY, 09/24/17) Physical Exam Vital Signs Date Time Temp Pulse Resp B/P (MAP) Pulse Ox O2 Delivery O2 Flow Rate FiO2 01/08/18 22:43 73 16 140/93 95 Room Air 01/08/18 21:30 90 18 137/107 95 Room Air 01/08/18 20:20 96 18 155/102 94 Room Air 01/08/18 19:57 97 01/08/18 19:22 37.1 114 18 164/102 97 Room Air Physical Exam GENERAL: Awake, alert, appears mildy uncomfortable HENT: Normocephalic, atraumatic. Oropharynx unremarkable. EYES: Normal conjunctiva. Sclera non-icteric. NECK: Supple. No nuchal rigidity. RESPIRATORY: Clear to auscultation. No wheezes. Normal respiratory effort. CARDIAC: Normal rate. Normal rhythm. Extremities warm and well perfused. GI: Soft, non-distended. No rebound or guarding. No masses. LLQ tenderness. Obese. Not peritoneal. RECTAL: Deferred. MUSCULOSKELETAL: Atraumatic. Chest examination reveals no tenderness. LOWER EXTREMITIES: Calves are equal size bilaterally and non-tender. No edema NEURO: Normal sensorium. No sensory or motor deficits noted. No facial droop. SKIN: Warm and dry. No rash or jaundice noted. Medical Decision & Procedures ER Provider Diagnostic Interpretation: Radiology results as stated below per my review and radiologist interpretation: CT SCAN OF THE ABDOMEN AND PELVIS WITH IV CONTRAST CLINICAL HISTORY: Left lower quadrant abdominal pain. COMPARISON STUDY: Abdominal CT dated 12/17/2016 and 10/23/2013. TECHNIQUE: Following the IV administration of 115 cc of Optiray 320, CT scan of the abdomen and pelvis is performed from the lung bases to the proximal femora. Images are reviewed in the axial, sagittal, and coronal planes. IV contrast was administered without complication. A dose lowering technique was utilized adhering to the principles of ALARA. CT DOSE: 864.68 mGy.cm FINDINGS: Lung bases: The heart is normal in size and without pericardial effusion. Calcified granulomas at both lung bases are unchanged as compared to multiple prior studies. No airspace consolidation or pleural effusion is identified. There is scarring/atelectasis is noted at the lung bases. There is a tiny hiatal hernia. Liver: The contrast-enhanced liver is top normal in size measuring 18 cm in length. The liver demonstrates diffusely diminished attenuation consistent with hepatic steatosis. Fatty sparing is seen adjacent to gallbladder fossa. There is no intrahepatic biliary ductal dilatation. The hepatic veins and portal veins are patent. A subcentimeter hypodensity in the dome of the liver on image #61 likely represents a cyst but is too small for definitive characterization. This has been seen on multiple prior studies. Gallbladder: Unremarkable. Spleen: Normal in size and attenuation. Pancreas: Unremarkable. Adrenal glands: Unremarkable. Kidneys: The contrast enhanced kidneys are normal in size and without hydronephrosis. The kidneys enhance symmetrically. Abdominal vasculature: The abdominal aorta is normal in course and caliber. Bowel: There is mild colonic diverticulosis without CT evidence of acute diverticulitis. No bowel obstruction is seen. There is a long segment of mild wall thickening and edema seen involving the left colon. This extends from the mid transverse colon to the mid descending colon. There is faint pericolonic stranding and the appearance is consistent with a nonspecific colitis. The appendix is not identified and reported surgically absent. Peritoneum: There is no intraperitoneal free air or abdominal ascites. There is a fat-containing umbilical hernia. Lymphadenopathy: None. Pelvic viscera: The bladder, prostate, and seminal vesicles are normal as visualized. Skeletal structures: No lytic or blastic lesions are seen. IMPRESSION: 1. Findings consistent with a mild nonspecific colitis of the left colon. This is likely on an infectious/inflammatory basis in this age group. Clinical correlation will be required. 2. There is mild colonic diverticulosis without CT evidence of acute diverticulitis. 3. Hepatic steatosis. 4. Additional findings as above. Electronically signed by: Brian Renteria M.D. 01/08/2018 10:09 PM Dictated Date/Time: 01/08/2018 10:00 PM Laboratory Results 01/08/18 20:00 Red Blood Count 4.89, Mean Corpuscular Volume 95.1, Mean Corpuscular Hemoglobin 33.5, Mean Corpuscular Hemoglobin Concent 35.3, Mean Platelet Volume 8.4, Neutrophils (%) (Auto) 54.4, Lymphocytes (%) (Auto) 31.3, Monocytes (%) (Auto) 12.7, Eosinophils (%) (Auto) 1.4, Basophils (%) (Auto) 0.1, Neutrophils # (Auto ) 4.42, Lymphocytes # (Auto) 2.54, Monocytes # (Auto) 1.03, Eosinophils # (Auto ) 0.11, Basophils # (Auto) 0.01 01/08/18 20:00 Test 01/08/18 20:00 01/08/18 22:30 White Blood Count 8.12 K/uL (4.8-10.8) Red Blood Count 4.89 M/uL (4.7-6.1) Hemoglobin 16.4 g/dL (14.0-18.0) Hematocrit 46.5 % (42-52) Mean Corpuscular Volume 95.1 fL (80-100) Mean Corpuscular Hemoglobin 33.5 pg (25-34) Mean Corpuscular Hemoglobin Concent 35.3 g/dl (32-36) Platelet Count 289 K/uL (130-400) Mean Platelet Volume 8.4 fL (7.4-10.4) Neutrophils (%) (Auto) 54.4 % Lymphocytes (%) (Auto) 31.3 % Monocytes (%) (Auto) 12.7 % Eosinophils (%) (Auto) 1.4 % Basophils (%) (Auto) 0.1 % Neutrophils # (Auto) 4.42 K/uL (1.4-6.5) Lymphocytes # (Auto) 2.54 K/uL (1.2-3.4) Monocytes # (Auto) 1.03 K/uL (0.11-0.59) Eosinophils # (Auto) 0.11 K/uL (0-0.5) Basophils # (Auto) 0.01 K/uL (0-0.2) RDW Standard Deviation 44.0 fL (36.4-46.3) RDW Coefficient of Variation 12.7 % (11.5-14.5) Immature Granulocyte % (Auto) 0.1 % Immature Granulocyte # (Auto) 0.01 K/uL (0.00-0.02) Anion Gap 9.0 mmol/L (3-11) Est Creatinine Clear Calc Drug Dose 89.7 ml/min Estimated GFR () 86.4 Estimated GFR (Non- 74.6 BUN/Creatinine Ratio 13.6 (10-20) Calcium Level 8.7 mg/dl (8.5-10.1) Total Bilirubin 0.3 mg/dl (0.2-1) Direct Bilirubin 0.1 mg/dl (0-0.2) Aspartate Amino Transf (AST/SGOT) 48 U/L (15-37) Alanine Aminotransferase (ALT/SGPT) 83 U/L (12-78) Alkaline Phosphatase 65 U/L (45-117) Troponin I < 0.015 ng/ml (0-0.045) Total Protein 7.9 gm/dl (6.4-8.2) Albumin 3.7 gm/dl (3.4-5.0) Lipase 131 U/L (73-393) Urine Color YELLOW Urine Appearance CLEAR (CLEAR) Urine pH 6.0 (4.5-7.5) Urine Specific [place] 1.032 (1.000-1.030) Urine Protein NEG (NEG) Urine Glucose (UA) NEG (NEG) Urine Ketones NEG (NEG) Urine Occult Blood NEG (NEG) Urine Nitrite NEG (NEG) Urine Bilirubin NEG (NEG) Urine Urobilinogen NEG (NEG) Urine Leukocyte Esterase NEG (NEG) Laboratory results reviewed by me Medications Administered Medications (Trade) Dose Ordered Sig/Gladis Route Start Time Stop Time Status Last Admin Dose Admin Sodium Chloride 1,000 ml @ 999 mls/hr Q1H1M STAT IV 01/08/18 19:39 01/08/18 20:39 DC 01/08/18 20:12 999 MLS/HR Ondansetron HCl (Zofran Inj) 4 mg NOW STAT IV 01/08/18 19:39 01/08/18 19:42 DC 01/08/18 20:09 4 MG Hydromorphone HCl (Dilaudid Inj) 1 mg NOW STAT IV 01/08/18 19:39 01/08/18 19:42 DC 01/08/18 20:10 1 MG Pantoprazole Sodium 40 mg/ Syringe 10 ml @ 5 mls/min NOW ONCE IV 01/08/18 19:45 01/08/18 19:46 DC 01/08/18 20:09 5 MLS/MIN Famotidine (Pepcid 20mg Iv Push) 20 mg ONE STAT IV 01/08/18 19:39 01/08/18 19:42 DC 01/08/18 20:09 20 MG Morphine Sulfate (MoRPHine SULFATE INJ) 4 mg NOW STAT IV 01/08/18 22:30 01/08/18 22:31 DC 01/08/18 22:47 4 MG ECG Per My Interpretation Indication: abdominal pain Rate (beats per minute): 90 Rhythm: normal sinus Findings: other (left axis, normal intervals, no ST elevation) Comparison ECG Date: 11/05/2017 Change: no significant change ED Course 0: The patient was evaluated in room A11B. A complete history and physical exam was performed. 1938: Ordered Famotidine 20 mg IV, Dilaudid Inj 1 mg IV, Zofran Inj 4 mg IV, Sodium Chloride 1000 ml @ 999 mls/hr. 1944: Ordered Pantoprazole Sodium 40 mg/Syringe 10 ml @ 5 mls/min. 2229: Ordered Morphine Sulfate 4 mg IV. 2236: I reevaluated the patient. Discussed results and discharge instructions: He verbalized understanding and agreement. The patient is ready for discharge. Medical Decision Differential diagnosis: Etiologies such as appendicitis, diverticulitis, PUD, biliary pathology, UTI, pancreatitis, obstruction, mesenteric ischemia, aortic pathology, infections, inflammatory bowel disease, renal colic, as well as others were entertained. Patient presents with onset last night of abdominal cramping and pain predominantly in the lower abdomen. Nausea and vomiting. She has noticed a little bit of blood on his toilet paper when wiping but this been an ongoing issue and he states he has hemorrhoids. Patient did not want a rectal exam. History of diverticulitis and had a prior colon resection for this. Prior appendectomy. No upper abdominal pain. Lower suspicion for ACS. Lower suspicion for GI bleed. Patient declined rectal exam. Likely some slight hemorrhoidal bleeding. Fluid rehydrated here. CT the abdomen pelvis completed. Doubt hepatitis or pancreatitis. Doubt biliary component. No leukocytosis. No significant transaminitis but slight elevation. Kidney function normal. Evidence of mild nonspecific left colon colitis. Likely given his history this is more infectious. No evidence of diverticulitis. Likely viral in nature. Do not believe antibiotics are indicated. Patient agreeable with this. Course of NSAIDs with some oxycodone breakthrough pain medicine given PDMP reviewed. Course of pepcid as well. Believe given findings pain medicine is appropriate. Fairly stable for outpatient follow-up. Work note given. [place] Drug Monitoring Program Search Results: patient reviewed within database, no issues identified Medication Reconcilliation Current Medication List: was personally reviewed by me Blood Pressure Screening Patient's blood pressure: Elevated blood pressure Blood pressure disposition: Referred to PCP Impression Primary Impression: Colitis Additional Impression: Acute gastroenteritis Scribe Attestation The scribe's documentation has been prepared under my direction and personally reviewed by me in its entirety. I confirm that the note above accurately reflects all work, treatment, procedures, and medical decision making performed by me. Departure Information Dispostion Home / Self-Care Prescriptions Oxycodone Ir (Roxicodone Ir) 5 Mg Tab 1 TAB PO Q6 Y for Pain, #12 TAB Prov: Pedro Pablo Knowles M.D. 01/08/18 Ibuprofen (Motrin) 600 Mg Tab 600 MG PO TID Y for Pain, #21 TAB With Food Prov: Pedro Pablo Knowles M.D. 01/08/18 Ondasetron Odt (ZOFRAN ODT) 4 Mg Tab 4 MG SL Q6H for Nausea, #20 TAB Prov: Pedro Pablo Knowles M.D. 01/08/18 Famotidine (Pepcid) 20 Mg Tab 20 MG PO BID for 21 Days, #42 TAB Prov: Pedro Pablo Knowles M.D. 01/08/18 Referrals Edouard Dominguez M.D. (PCP) Forms Call Back Authorization, HOME CARE DOCUMENTATION FORM, IMPORTANT VISIT INFORMATION Patient Instructions My [facility] Additional Instructions You have some left colitis on imaging. This requires symptomatic control and should resolve within a week. Utilize the prescribed medicine to help with your pain and nausea. Maintain hydration. Please do not operate heavy machinery or drive until he understand narcotic pain medication may affect you. Please follow-up with your regular doctor in the next 3-5 days. If you have any concerns or new symptoms please return here for reevaluation. Problem Qualifiers
[2018-01-08 20:12] LABS: BASO % 0.1 %; BASO ABS # 0.01 K/uL (0-0.2); EOS % 1.4 %; EOS ABS # 0.11 K/uL (0-0.5); HEMATOCRIT 46.5 % (42-52); HEMOGLOBIN 16.4 g/dL (14.0-18.0); IG# 0.01 K/uL (0.00-0.02); LYMPH % 31.3 %; LYMPH ABS # 2.54 K/uL (1.2-3.4); MEAN CELL VOLUME 95.1 fL (80-100); MEAN CORPUSCULAR HEMOGLOBIN 33.5 pg (25-34); MEAN CORPUSCULAR HGB CONC 35.3 g/dl (32-36); MEAN PLATELET VOLUME 8.4 fL (7.4-10.4); MONO % 12.7 %; MONO ABS # 1.03 K/uL (0.11-0.59); NEUT % 54.4 %; NEUT ABS # 4.42 K/uL (1.4-6.5); PLATELET COUNT 289 K/uL (130-400); RED CELL DISTRIBUTION WIDTH CV 12.7 % (11.5-14.5); WHITE BLOOD COUNT 8.12 K/uL (4.8-10.8)
[2018-01-08] MEDS ORDERED: AMT25 PO (20:20)
[2018-01-08 20:34] LABS: ALBUMIN 3.7 gm/dl (3.4-5.0); ALKALINE PHOSPHATASE 65 U/L (45-117); ALT/SGPT 83 U/L (12-78); AST/SGOT 48 U/L (15-37); BLOOD UREA NITROGEN 16 mg/dl (7-18); CALCIUM 8.7 mg/dl (8.5-10.1); CARBON DIOXIDE 26 mmol/L (21-32); CREATININE 1.14 mg/dl (0.60-1.40); GLUCOSE 122 mg/dl (70-99); LIPASE 131 U/L (73-393); POTASSIUM 3.6 mmol/L (3.5-5.1); SODIUM 139 mmol/L (136-145); TOTAL PROTEIN 7.9 gm/dl (6.4-8.2)
--- NOTE | 2018-01-08 22:11 | DIAGNOSTIC IMAGING REPORT ---
CT SCAN OF THE ABDOMEN AND PELVIS WITH IV CONTRAST CLINICAL HISTORY: Left lower quadrant abdominal pain. COMPARISON STUDY: Abdominal CT dated 12/17/2016 and 10/23/2013. TECHNIQUE: Following the IV administration of 115 cc of Optiray 320, CT scan of the abdomen and pelvis is performed from the lung bases to the proximal femora. Images are reviewed in the axial, sagittal, and coronal planes. IV contrast was administered without complication. A dose lowering technique was utilized adhering to the principles of ALARA. CT DOSE: 864.68 mGy.cm FINDINGS: Lung bases: The heart is normal in size and without pericardial effusion. Calcified granulomas at both lung bases are unchanged as compared to multiple prior studies. No airspace consolidation or pleural effusion is identified. There is scarring/atelectasis is noted at the lung bases. There is a tiny hiatal hernia. Liver: The contrast-enhanced liver is top normal in size measuring 18 cm in length. The liver demonstrates diffusely diminished attenuation consistent with hepatic steatosis. Fatty sparing is seen adjacent to gallbladder fossa. There is no intrahepatic biliary ductal dilatation. The hepatic veins and portal veins are patent. A subcentimeter hypodensity in the dome of the liver on image #61 likely represents a cyst but is too small for definitive characterization. This has been seen on multiple prior studies. Gallbladder: Unremarkable. Spleen: Normal in size and attenuation. Pancreas: Unremarkable. Adrenal glands: Unremarkable. Kidneys: The contrast enhanced kidneys are normal in size and without hydronephrosis. The kidneys enhance symmetrically. Abdominal vasculature: The abdominal aorta is normal in course and caliber. Bowel: There is mild colonic diverticulosis without CT evidence of acute diverticulitis. No bowel obstruction is seen. There is a long segment of mild wall thickening and edema seen involving the left colon. This extends from the mid transverse colon to the mid descending colon. There is faint pericolonic stranding and the appearance is consistent with a nonspecific colitis. The appendix is not identified and reported surgically absent. Peritoneum: There is no intraperitoneal free air or abdominal ascites. There is a fat-containing umbilical hernia. Lymphadenopathy: None. Pelvic viscera: The bladder, prostate, and seminal vesicles are normal as visualized. Skeletal structures: No lytic or blastic lesions are seen. IMPRESSION: 1. Findings consistent with a mild nonspecific colitis of the left colon. This is likely on an infectious/inflammatory basis in this age group. Clinical correlation will be required. 2. There is mild colonic diverticulosis without CT evidence of acute diverticulitis. 3. Hepatic steatosis. 4. Additional findings as above. Electronically signed by: Brian Renteira M.D. 01/08/2018 10:09 PM Dictated Date/Time: 01/08/2018 10:00 PM
[2018-01-08] MEDS ORDERED: MoRPHine SULFATE 4 MG/ML 1 ML CARP\\VIAL IV STA (22:30)
[2018-01-08] MEDS ORDERED: LISI10TA PO (22:34)
[2018-01-08] MEDS ORDERED: IBUP600T44 PO (22:35)
[2018-01-08] MEDS ORDERED: FAMO20TA11 PO (22:35)
[2018-01-08] MEDS ORDERED: ONDA4TAB10 SL (22:35)
[2018-01-08] MEDS ORDERED: OXYC-90 PO (22:36)
[2018-01-08 22:43] VITALS: BP 140/93; PULSE 73; O2SAT 95
== END 2018-01-08 23:00 | disposition home or self-care (01) ==
LOC: C.EDB 19:19 → C.EDA 23:00
DX: K52.9 Noninfective gastroenteritis and colitis, unspecified (principal); K57.90 Diverticulosis of intestine, part unspecified, without perforation or abscess without bleeding; I10 Essential (primary) hypertension; Z79.899 Other long term (current) drug therapy; Z88.8 Allergy status to other drugs, medicaments and biological substances